=== PATIENT | male | born 1990 | race Caucasian/White ===

== ENCOUNTER 2017-03-28 14:56 | Inpatient (IN) | payer MEDICARE, MEDICAID ==
[2017-03-28 18:27] LABS: Hematocrit 46 % (42-52); Hemoglobin 15.3 g/dl (14.0-18.0); Mean Corpuscular HGB Conc 34 g/dl (31-36); Mean Corpuscular Hemoglobin 30 pg (27-31); Mean Corpuscular Volume 89 fL (80-94); Mean Platelet Volume 7 um3 (7.4-10.4); Red Blood Count 5.14 10^6/ul (4.0-5.4); Red Cell Distribution Width 13 % (10.5-15); White Blood Count 7.5 10^3/ul (3.5-10.8)
[2017-03-28 18:49] LABS: ALT 22 U/L (7-52); AST 16 U/L (13-39); Albumin 4.6 g/dL (3.2-5.2); Alkaline Phosphatase 67 U/L (34-104); Anion Gap 7 mmol/L (2-11); Blood Urea Nitrogen 15 mg/dL (6-24); CO2 Carbon Dioxide 24 mmol/L (22-32); Calcium 9.8 mg/dL (8.6-10.3); Chloride 105 mmol/L (101-111); EGFR African American 116.2 (>60); EGFR Non-African American 90.3 (>60); Globulin 3.1 g/dL (2-4); Glucose 96 mg/dL (70-100); Sodium 136 mmol/L (133-145); Total Protein 7.7 g/dL (6.4-8.9)
[2017-03-28 19:01] LABS: Acetaminophen < 15 mcg/mL; Alcohol < 10 mg/dL (<10); Salicylate < 2.50 mg/dL (<30)
[2017-03-28 19:07] LABS: TSH (Thyroid Stimulating Horm) 2.58 mcIU/mL (0.34-5.60)
--- NOTE | 2017-03-28 22:29 | ED ---
Megan Castillo Edward, scribed for Dago Brunner MD on 03/28/17 at 1514 . Psychiatric Complaint - HPI Summary HPI Summary: 26 y/o male brought to ED by mother. Patient's mother is concerned that the patient has stopped taking his medications, including Fluphenazine 10 mg. Per triage, the patient has also become increasingly violent recently. Patient's mother states he is here for a MHU evaluation, but he denies need for such, per triage. He denies any drug or alcohol use today. PMHx schizophrenia. The patient is uncooperative and does not give much information. 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 Fluphenazine 10 mg among such medications - Allergies/Home Medications Allergies/Adverse Reactions: Allergies Allergy/AdvReac Type Severity Reaction Status Date / Time No Known Allergies Allergy Verified 09/11/13 09:18 Home Medications: Home Medications fluPHENAZine HCL TAB* [Prolixin TAB*] 20 mg PO BEDTIME 03/28/17 [History Confirmed 03/28/17] PMH/Surg Hx/FS Hx/Imm Hx Previously Healthy: No Endocrine/Hematology History: Denies: Hx Diabetes, Hx Thyroid Disease Cardiovascular History: Denies: Hx Hypertension, Hx Pacemaker/ICD Respiratory History: Denies: Hx Asthma, Hx Chronic Obstructive Pulmonary Disease (COPD) GI History: Denies: Hx Ulcer Musculoskeletal History: Reports: Hx Back Problems Sensory History: Denies: Hx Hearing Aid Psychiatric History: Reports: Hx Substance Abuse, Other Psychiatric Issues/ Disorders Denies: Hx Eating Disorder, Hx Panic Disorder, Hx of Violent Episodes Against Others Infectious Disease History: No Infectious Disease History: Denies: Hx Hepatitis, Hx Human Immunodeficiency Virus (HIV), History Other Infectious Disease, Traveled Outside the [place] in Last 30 Days - Family History Known Family History: Positive: Other - Negative for psychiatric disorders - Social History Occupation: Employed Full-time Lives: With Family Alcohol Use: Occasionally Substance Use Type: Reports: None Review of Systems Constitutional: Negative Eyes: Negative ENT: Negative Cardiovascular: Negative Respiratory: Negative Gastrointestinal: Negative Genitourinary: Negative Musculoskeletal: Negative Skin: Negative Neurological: Negative Psychological: Other - Increasingly violent, per triage All Other Systems Reviewed And Are Negative: Yes Physical Exam - Summary Physical Exam Summary: Patient is uncooperative and does not give much information Triage Information Reviewed: Yes Vital Signs On Initial Exam: Initial Vitals Temp Pulse Resp BP Pulse Ox 98.2 F 93 20 142/74 98 03/28/17 15:01 03/28/17 15:01 03/28/17 15:01 03/28/17 15:01 03/28/17 15:01 Vital Signs Reviewed: Yes Appearance: Positive: Well-Appearing, No Pain Distress Skin: Positive: Warm, Skin Color Reflects Adequate Perfusion, Dry Head/Face: Positive: Normal Head/Face Inspection Eyes: Positive: EOMI, JEREMIAH ENT: Positive: Normal ENT inspection Neck: Positive: Supple, Nontender Respiratory/Lung Sounds: Positive: Clear to Auscultation, Breath Sounds Present Cardiovascular: Positive: RRR Abdomen Description: Positive: Nontender, Soft Bowel Sounds: Positive: Present Musculoskeletal: Positive: Normal, Strength/ROM Intact Neurological: Positive: Normal, Sensory/Motor Intact, Alert, Oriented to Person Place, Time Psychiatric: Positive: Affect/Mood Appropriate Diagnostics - Vital Signs Vital Signs Temp Pulse Resp BP Pulse Ox 03/28/17 15:01 98.2 F 93 20 142/74 98 - Laboratory Lab Results: Lab Results 03/28/17 03/28/17 Range/Units 18:15 18:15 WBC 7.5 (3.5-10.8) 10^3/ul RBC 5.14 (4.0-5.4) 10^6/ul Hgb 15.3 (14.0-18.0) g/dl Hct 46 (42-52) % MCV 89 (80-94) fL MCH 30 (27-31) pg MCHC 34 (31-36) g/dl RDW 13 (10.5-15) % Plt Count 283 (150-450) 10^3/ul MPV 7 L (7.4-10.4) um3 Neut % (Auto) 63.9 (38-83) % Lymph % (Auto) 28.0 (25-47) % [place] % (Auto) 6.5 (1-9) % Eos % (Auto) 0.9 (0-6) % Baso % (Auto) 0.7 (0-2) % Absolute Neuts (auto) 4.8 (1.5-7.7) 10^3/ul Absolute Lymphs (auto) 2.1 (1.0-4.8) 10^3/ul Absolute Monos (auto) 0.5 (0-0.8) 10^3/ul Absolute Eos (auto) 0.1 (0-0.6) 10^3/ul Absolute Basos (auto) 0.1 (0-0.2) 10^3/ul Absolute Nucleated RBC 0 10^3/ul Nucleated RBC % 0 Sodium 136 (133-145) mmol/L Potassium 4.0 (3.5-5.0) mmol/L Chloride 105 (101-111) mmol/L Carbon Dioxide 24 (22-32) mmol/L Anion Gap 7 (2-11) mmol/L BUN 15 (6-24) mg/dL Creatinine 1.00 (0.67-1.17) mg/dL Est GFR ( Amer) 116.2 (>60) Est GFR (Non-Af Amer) 90.3 (>60) BUN/Creatinine Ratio 15.0 (8-20) Glucose 96 (70-100) mg/dL Calcium 9.8 (8.6-10.3) mg/dL Total Bilirubin 0.40 (0.2-1.0) mg/dL AST 16 (13-39) U/L ALT 22 (7-52) U/L Alkaline Phosphatase 67 (34-104) U/L Total Protein 7.7 (6.4-8.9) g/dL Albumin 4.6 (3.2-5.2) g/dL Globulin 3.1 (2-4) g/dL Albumin/Globulin Ratio 1.5 (1-3) TSH 2.58 (0.34-5.60) mcIU/mL Salicylates < 2.50 (<30) mg/dL Acetaminophen < 15 mcg/mL Serum Alcohol < 10 (<10) mg/dL Result Diagrams: 03/28/17 18:15 03/28/17 18:15 Lab Statement: Any lab studies that have been ordered have been reviewed, and results considered in the medical decision making process. Course/Dx - Course Course Of Treatment: NO CRITICAL CARE TIME. ADMIT MHU STABLE. Assessment/Plan: Patient is medically cleared for MHU evaluation @ 19:[address] Dago Brunner. - Differential Dx/Clinical Impression Provider Diagnosis: Mental health problem Discharge - Discharge Plan Condition: Stable Disposition: ADMITTED TO [facility] Referrals: No Primary Care Phys,NOPCP [Primary Care Provider] - The documentation as recorded by the Megan mcgovern Edward accurately reflects the service I personally performed and the decisions made by me, Dago Brunner MD.
[2017-03-29] MEDS ORDERED: Nicotine Inhaler* 10 MG AMP INH PRN (02:27)
[2017-03-29] MEDS ORDERED: Al Hydrox/Mg Hydrox/Simet LIQ* 30 ML UDC PO PRN (02:27)
[2017-03-29] MEDS ORDERED: Nicotine GUM* 2 MG PO PRN (02:27)
[2017-03-29] MEDS ORDERED: Mouth Piece, Nicotine* 1 EACH CARTRIDGE INH SCH (02:27)
--- NOTE | 2017-03-29 12:21 | HP ---
H&P (Free Text) History and Physical: HPI: ---- Patient is a 26yo male with PPHx significant for Schizophrenia who presented to the [facility] ED, brought in by his mother, due to increasing aggressive behavior and her concern that the patient has stopped taking his MH medication, Fluphenazine 20 mg~ po bedtime. ~The patient has been mostly uncooperative with the interview and gives no information. Patient is noted to be up for meals and is able to voice his needs. Per mom, patient has not been attending to ADLs and has not bathed in days. She reports recently he has been expressing bizarre paranoid delusions, bizarre ideations, and has been observed responding to internal stimuli. Patient reports no use of alcohol or illicit substances. He reports no prior suicide attempts. He denies current AH/VH and SI/HI. Patient denies depression, anxiety, poor sleep, and thoughts people intended hurt him. Patient has been secluded to his room since admission. Past Psych Hx: Inpt - This is patient's 2nd, 1st at [facility] in 08/2013, with similar presentation Outpt - none due to non-compliance Psychotropic med hx - Prolixin Suicide attempt Hx / SIB Hx: -Patient denies hx of suicide attempt. Trauma Hx: -Patient denies hx of trauma in childhood and adulthood. Substance Hx: -Patient denies abuse of alcohol and denies use of illicit substances. Medical Hx: NONE Allergies: --------- NKDA Family Hx: - Per Medical Record No hx of MH, IAIN, or suicide in family. Social Hx: - Per Medical Record --------- -Born and raised in [place], [place] -Raised by mom and dad -No siblings -Single, never , no children -HLOE - HS diploma -Denied legal hx HOME MEDS: Home Medications Medication Instructions Recorded Confirmed Type fluPHENAZine HCL TAB* [Prolixin 20 mg PO BEDTIME 03/28/17 03/28/17 History TAB*] VITALS: Vital Signs (72 hours) 03/28/17 03/28/17 03/28/17 15:01 16:45 20:05 Temperature 98.2 F 98.3 F 98.7 F Pulse Rate 93 78 84 Respiratory 20 16 15 Rate Blood Pressure 142/74 135/70 103/51 (mmHg) O2 Sat by Pulse 98 100 100 Oximetry 03/28/17 03/29/17 03/29/17 22:46 03:02 07:53 Temperature 98.0 F 97.6 F Pulse Rate 74 54 Respiratory 16 18 16 Rate Blood Pressure 123/64 109/64 (mmHg) O2 Sat by Pulse 99 99 Oximetry 03/29/17 11:54 Temperature Pulse Rate Respiratory 16 Rate Blood Pressure (mmHg) O2 Sat by Pulse Oximetry LABS: ----- Laboratory Tests 03/28/17 03/28/17 18:15 18:15 WBC 7.5 RBC 5.14 Hgb 15.3 Hct 46 MCV 89 MCH 30 MCHC 34 RDW 13 Plt Count 283 MPV 7 L Neut % (Auto) 63.9 Lymph % (Auto) 28.0 [place] % (Auto) 6.5 Eos % (Auto) 0.9 Baso % (Auto) 0.7 Absolute Neuts (auto) 4.8 Absolute Lymphs (auto) 2.1 Absolute Monos (auto) 0.5 Absolute Eos (auto) 0.1 Absolute Basos (auto) 0.1 Absolute Nucleated RBC 0 Nucleated RBC % 0 Sodium 136 Potassium 4.0 Chloride 105 Carbon Dioxide 24 Anion Gap 7 BUN 15 Creatinine 1.00 Est GFR ( Amer) 116.2 Est GFR (Non-Af Amer) 90.3 BUN/Creatinine Ratio 15.0 Glucose 96 Calcium 9.8 Total Bilirubin 0.40 AST 16 ALT 22 Alkaline Phosphatase 67 Total Protein 7.7 Albumin 4.6 Globulin 3.1 Albumin/Globulin Ratio 1.5 TSH 2.58 Salicylates < 2.50 Acetaminophen < 15 Serum Alcohol < 10 PHYSICAL EXAM: Patient declined PE. Please see PE documented on the [facility] ED: Psychiatric Complaint note dated 03/28/17. MSE: ----- Appearance - thin build male, looks stated age, disheveled, in NAD Behavior -calm, uncooperative Speech - single word responses, prosody wnl Eye Contact - poor Mood - "fine" Affect - anxious TP - unable to assess TC - unable to assess Perception - pt denies AH/VH, (+) expressed paranoid delusions, (+) expressed bizarre ideations Orientation - A&Ox2 Cognition - intact Attention - intact Insight - poor Judgment - poor SI / HI - SI present on admission, currently denies both ASSESSMENT: 1. Schizophrenia PLAN: ------ 1. Continue admission to [facility] for safety and symptom mx. 2. Patient gives consent to start Abilify 10mg po qhs for mood stabilization/ psychosis. 3. Will request urine from patient for UDS and UA. 4. Continue compiling collateral information from family, PCP, andMH providers. 5. Patient to participate in milieu activities and groups.
[2017-03-29] MEDS ORDERED: LORazepam TAB(*) 1 MG PO ONE (18:30)
[2017-03-29] MEDS: ARIPiprazole TAB* 5 MG PO SCH (21:40)
--- NOTE | 2017-03-30 18:08 | PN ---
Subjective - Subjective Service Type: 63369 Hosp care 15 min low complexity Subjective: Patient lying in bed on my approach. Patient is uncooperative with interview, stating "I don't feel like talking right now" as this provider initiated the interview. Patient is noted to be up for meals and is able to voice his needs. Patient is anxous in affect and continues to behave as if responding to internal stimuli. He did not take anti-psychotic ordered for last night. Patient informed T.O.O. process would be initiated Sunday due to non-compliance as currently he does not demonstrate ability to maintain his safety. Patient encouraged to be med compliant and report any s/ e's to nursing. Objective - Appearance Appearance: Thin Framed Dysmorphic Features: No Hygiene: Dirty Grooming: Disheveled - Behavior Psychomotor Activities: Abnormal-Decreased Exhibits Abnormal Movement: Yes - Attitude and Relatedness Attitude and Relatedness: Psychotically Related Eye Contact: Poor - Speech Quality: Unpressured Latencies: Short Quantity: Terse - Mood Patient's Decription of Mood: "Anxious" - Affect Observed Affect: Tense Affect Consistent with: Dysphoria - Thought Process Patient's Thought Process: Disorganized Thought Content: No Passive Wish, No Suicidal Planning, No Homicidal Ideation, No Paranoid Ideation - Sensorium Experiencing Hallucinations: No, Sensorium is Clear Type of Hallucinations: Visual: No - per pt., Auditory: No - per pt., Command: No - per pt. - Level of Consciousness Level of Consciousness: Agitated Orientation: Yes Orientated to Place, Yes Orientated to Person, No Intact, No Orientated to Time - Impulse Control Impulse Control: Impaired - Insight and Judgement Insight and Judgement: Impaired - Group Participation Particating in Group Activities: No - Medication Management Medication Management Adherence: No Assessment - Assessment Merits Inpatient Hospitalization: For Immediate Safety, For Stabilization Inpatient DSM-IV Dx: 1. Schizophrenia Clinical Impression: 26yo male patient with PPHx significant for Schizophrenia presented to the [facility] ED, brought in by his mother, due to increasing aggressive behavior and her concern that the patient has stopped taking his MH medications, Fluphenazine 20 mg~ po daily. ~The patient has been uncooperative with all interviews and gives no information. Patient is noted to be up for meals and is able to voice his needs. Per mom, patient has not been attending to ADLs and has not bathed in days. She reports recently he has been expressing bizarre paranoid delusions, bizarre ideations and has been observed responding to internal stimuli. Patient reports no use of alcohol or illicit substances. Patient has been secluded to his room since admission. He has not med compliant this admission. Patient informed T.O.O. process would be initiated due to non-compliance as currently he does not demonstrate ability to maintain his safety. Plan - Plan Treatment Plan: Name: CAT MUNIZ Birthdate: 1990 [id number] PLAN: ------ 1. Continue admission to [facility] for safety and symptom mx. 2. Patient non-complaint with Abilify 10mg po qhs for mood stabilization/ psychosis. 3. Patient informed T.O.O. process would be initiated Sunday due to non- compliance as currently he does not demonstrate ability to maintain his safety. Patient encouraged to be med compliant and report any s/e's to nursing. 4. Patient declines request for urine for UDS and UA. 5. Continue compiling collateral information from family, PCP, andMH providers. 6. Patient to participate in milieu activities and groups. Continued Medication Management: Different Medication Medications: Current Medications Acetaminophen (Tylenol Tab*) 650 mg PO Q4H PRN PRN Reason: PAIN or TEMP > 101 F Al Hydrox/Mg Hydrox/Simethicone (Maalox Plus*) 30 ml PO Q4H PRN PRN Reason: INDIGESTION Aripiprazole (Abilify Tab*) 10 mg PO BEDTIME [facility] Last Admin: 03/29/17 21:40 Dose: Not Given Device (Nicotine Mouth Piece*) 1 each INH .[facility] Nicotine (Nicotine Inhaler*) 10 mg INH Q2H PRN PRN Reason: CRAVING Nicotine Polacrilex (Nicotine Gum*) 2 mg PO Q2H PRN PRN Reason: CRAVING - Discharge Plan Discharge Plan: Outpatient Follow Up Outpatient Program: Private Clinician(s)
[2017-03-30] MEDS: ARIPiprazole TAB* 5 MG PO SCH (20:35)
--- NOTE | 2017-03-31 16:56 | PN ---
Subjective - Subjective Service Type: [id number] Hosp care 15 min low complexity Subjective: Asa is seen for weekend follow up and is found sitting alone on a sofa out on the milieu. Staff seemed surprised to see him as he mostly stays in his room under his covers unless it is mealtime, which isn't scheduled for another half hour. He agrees to go back to his room with me but will not make eye contact or make any spontaneous speech. When asked about the circumstances surrounding admission he replies "I don't remember." I ask him if he's willing to resume antipsychotic medication, to which he initially agrees, but when I offer to go get a nurse and come back with it, he abruptly gets up and leaves the room. He refuses to engage in conversation thereafter, appearing irritable and somewhat hostile. He denies SI or HI. Objective - Appearance Appearance: Well Developed/Nourished Dysmorphic Features: No Hygiene: Dirty Grooming: Disheveled - Behavior Psychomotor Activities: Abnormal-Decreased Exhibits Abnormal Movement: No - Attitude and Relatedness Attitude and Relatedness: Withdrawn Eye Contact: Poor - Speech Quality: Unpressured Latencies: Long Quantity: Terse - Mood Patient's Decription of Mood: "Okay" - Affect Observed Affect: Tense Affect Consistent with: Dysphoria - Thought Process Patient's Thought Process: Impoverished Thought Content: Yes Paranoid Ideation, No Passive Wish, No Suicidal Planning, No Homicidal Ideation - Sensorium Experiencing Hallucinations: Yes Type of Hallucinations: Visual: Yes, Auditory: Yes, Command: No - Level of Consciousness Level of Consciousness: Alert Orientation: Yes Intact, Yes Orientated to Time, Yes Orientated to Place, Yes Orientated to Person - Impulse Control Impulse Control: Poor - Insight and Judgement Insight and Judgement: Impaired - Group Participation Particating in Group Activities: No - Medication Management Medication Management Adherence: No Assessment - Assessment Merits Inpatient Hospitalization: For Immediate Safety, For Stabilization Inpatient DSM-IV Dx: 1. Schizophrenia Clinical Impression: 26 y.o. single, white male with a history of schizophrenia brought in by his mother due to increasing aggression and decreased self care in the setting of non-adherence with neuroleptic medications for several months. Plan - Plan Treatment Plan: Name: ASA MUNIZ Birthdate: 1990 [id number] Patient refusing antipsychotic treatment. Likely requires T.O.O. Continue to offer aripiprazole 10mg PO qday. Needs further inpatient care. Continued Medication Management: Start Medication Medications: Current Medications Acetaminophen (Tylenol Tab*) 650 mg PO Q4H PRN PRN Reason: PAIN or TEMP > 101 F Al Hydrox/Mg Hydrox/Simethicone (Maalox Plus*) 30 ml PO Q4H PRN PRN Reason: INDIGESTION Aripiprazole (Abilify Tab*) 10 mg PO BEDTIME [facility] Last Admin: 03/30/17 20:35 Dose: Not Given Device (Nicotine Mouth Piece*) 1 each INH .[facility] Nicotine (Nicotine Inhaler*) 10 mg INH Q2H PRN PRN Reason: CRAVING Nicotine Polacrilex (Nicotine Gum*) 2 mg PO Q2H PRN PRN Reason: CRAVING - Discharge Plan Discharge Plan: Inpatient Hospitalization
[2017-03-31] MEDS: ARIPiprazole TAB* 5 MG PO SCH (22:40)
[2017-04-01] MEDS: ARIPiprazole TAB* 5 MG PO SCH (21:22)
--- NOTE | 2017-04-02 15:34 | PN ---
Subjective - Subjective Service Type: [id number] Hosp care 15 min low complexity Subjective: Patient in line for lunch tray on approach. He is calm and cooperative. He is noted to have spent the majority of the weekend in his room. He is noted to be able to verbal needs. Patient has not attended to his hygeine and has not engaged in therapy. Patient has been med non-compliant. Patient again today declined the interview. Patient informed this provider will start the process of T.O.O. today. Per conversation with mother(Lyndsay#[phone]) patient has shown most benefit on Risperdal. She reports patient has been increasingly verbally aggressive and paranoid x 1month. He has not reported hallucinations to her, but she has observed him to be responding to internal stimuli. Patient slapped pills from his mother's hand during an attempt to administer. She reports patient has hx of med non-compliance and believes patient has been med non-compliant for at least the last month. Mom requests consideration of an VALADEZ during T.O.O. Objective - Appearance Appearance: Well Developed/Nourished Dysmorphic Features: No Hygiene: Dirty Grooming: Disheveled - Behavior Psychomotor Activities: Abnormal-Decreased Exhibits Abnormal Movement: No - Attitude and Relatedness Attitude and Relatedness: Withdrawn Eye Contact: Poor - Speech Quality: Unpressured Latencies: Short Quantity: Terse - Mood Patient's Decription of Mood: uncooperative with interview - Affect Observed Affect: Unvariable Affect Consistent with: Euthymia - Thought Process Patient's Thought Process: Coherent Thought Content: No Passive Wish, No Suicidal Planning, No Homicidal Ideation, No Paranoid Ideation - Level of Consciousness Level of Consciousness: Alert - Impulse Control Impulse Control: Poor - Insight and Judgement Insight and Judgement: Poor - Group Participation Particating in Group Activities: No - Medication Management Medication Management Adherence: No Assessment - Assessment Merits Inpatient Hospitalization: For Immediate Safety, For Stabilization Inpatient DSM-IV Dx: 1. Schizophrenia Clinical Impression: 26yo male patient with PPHx significant for Schizophrenia presented to the [facility] ED, brought in by his mother, due to increasing aggressive behavior and mother s concern that the patient has stopped taking his MH medication, Fluphenazine 20 mg po daily. The patient has been uncooperative with all interviews and gives no information. Per mom(Lyndsay#[phone]), who patient lives with, patient has not been attending to ADLs. Mom reports patient has been non- compliant with mental health meds for at least one month. Mom reports patient has not bathed in approx. 4 weeks. She reports patient is more isolative and socially withdrawn over the same time. She reports patient has a hx of VHs and AHs. She reports he recently he has not reported hallucinations to her, but she has noticed him behaving as if responding to some internal stimuli. She reports he has been expressing paranoid delusions and bizarre ideas. Plan - Plan Treatment Plan: Name: CAT MUNIZ Birthdate: 1990 [id number] PLAN: ------ 1. Continue admission to [facility] for safety and symptom mx. 2. Patient continues to be non-complaint with Abilify 10mg po qhs for mood stabilization/psychosis. 3. Patient informed T.O.O. process will start today(04/02/17) due to non- compliance as currently he does not demonstrate ability to maintain his safety. Patient encouraged to be med compliant and report any s/e's to nursing. 4. Patient declines request for urine for UDS and UA. 5. Continue compiling collateral information from family, PCP, and MH providers. 6. Patient to participate in milieu activities and groups. Continued Medication Management: Different Medication Medications: Current Medications Acetaminophen (Tylenol Tab*) 650 mg PO Q4H PRN PRN Reason: PAIN or TEMP > 101 F Al Hydrox/Mg Hydrox/Simethicone (Maalox Plus*) 30 ml PO Q4H PRN PRN Reason: INDIGESTION Aripiprazole (Abilify Tab*) 10 mg PO BEDTIME [facility] Last Admin: 04/01/17 21:22 Dose: Not Given Device (Nicotine Mouth Piece*) 1 each INH .[facility] Nicotine (Nicotine Inhaler*) 10 mg INH Q2H PRN PRN Reason: CRAVING Nicotine Polacrilex (Nicotine Gum*) 2 mg PO Q2H PRN PRN Reason: CRAVING - Discharge Plan Discharge Plan: Outpatient Follow Up
[2017-04-02] MEDS: ARIPiprazole TAB* 5 MG PO SCH (20:33)
--- NOTE | 2017-04-03 19:06 | PN ---
Subjective - Subjective Service Type: 20307 Hosp care 15 min low complexity Subjective: Patient again noted to be mostly isolated in his room. Patient is seen in the milieu for meals. Patient continues to be non-compliant with meds and groups. On approach patient was eating dinner sitting at a table alone. Patient observed starring straight ahead and making facial expressions as if responding to VHs. Patient again reported he did not want to talk. Patient also noted to have a visitor after my attempt to interview. Patient did not engage his visitor in conversation either. Patient noted to have completed approx 75% of his meal. He is noted to be able to verbalize his needs. Patient has made no complaints. Objective - Appearance Appearance: Thin Framed Dysmorphic Features: No Hygiene: Dirty Grooming: Disheveled - Behavior Psychomotor Activities: Abnormal-Decreased Exhibits Abnormal Movement: No - Attitude and Relatedness Attitude and Relatedness: Withdrawn Eye Contact: Poor - Speech Quality: Unpressured Latencies: Short Quantity: Terse - Mood Patient's Decription of Mood: uncooperative with interniew - Affect Observed Affect: Unvariable Affect Consistent with: Dysphoria - Thought Process Patient's Thought Process: Disorganized Thought Content: No Passive Wish - unable to assess, No Suicidal Planning - unable to assess, No Homicidal Ideation - unable to assess, No Paranoid Ideation - unable to assess - Sensorium Experiencing Hallucinations: Yes Type of Hallucinations: Visual: No - unable to assess, but patient noted obviously responding to internal stimuli, Auditory: No - unable to assess, but patient noted obviously responding to internal stimuli, Command: No - unable to assess, but patient noted obviously responding to internal stimuli - Level of Consciousness Level of Consciousness: Lethargic Orientation: Yes Intact, Yes Orientated to Place, Yes Orientated to Person, No Orientated to Time - Impulse Control Impulse Control: Impaired - Insight and Judgement Insight and Judgement: Impaired - Medication Management Medication Management Adherence: No Assessment - Assessment Inpatient DSM-IV Dx: 1. Schizophrenia Clinical Impression: 26yo male patient with PPHx significant for Schizophrenia presented to the [facility], brought in by his mother, due to increasing aggressive behavior and mother s concern that the patient has stopped taking his MH medication, Fluphenazine 20 mg po daily. The patient has been uncooperative with all interviews and gives no information. Per mom(Lyndsay#[phone]), who patient lives with, patient has not been attending to ADLs. Mom reports patient has been non- compliant with mental health meds for at least one month. Mom reports patient has not bathed in approx. 4 weeks. She reports patient is more isolative and socially withdrawn over the same time. She reports patient has a hx of VHs and AHs. She reports he recently he has not reported hallucinations to her, but she has noticed him behaving as if responding to some internal stimuli. She reports he has been expressing paranoid delusions and bizarre ideas. Plan - Plan Treatment Plan: Name: CAT MUNIZ Birthdate: 1990 [id number] PLAN: ------ 1. Continue admission to [facility] for safety and symptom mx. 2. Patient continues to be non-complaint with Abilify 10mg po qhs for mood stabilization/psychosis. 3. Patient informed T.O.O. process will start today(04/02/17) due to non- compliance as currently he does not demonstrate ability to maintain his safety. Patient encouraged to be med compliant and report any s/e's to nursing. 4. Patient declines request for urine for UDS and UA. 5. Continue compiling collateral information from family, PCP, and MH providers. 6. Patient to participate in milieu activities and groups. Medications: Current Medications Acetaminophen (Tylenol Tab*) 650 mg PO Q4H PRN PRN Reason: PAIN or TEMP > 101 F Al Hydrox/Mg Hydrox/Simethicone (Maalox Plus*) 30 ml PO Q4H PRN PRN Reason: INDIGESTION Aripiprazole (Abilify Tab*) 10 mg PO BEDTIME [facility] Last Admin: 04/02/17 20:33 Dose: Not Given Device (Nicotine Mouth Piece*) 1 each INH .CARTRIDGE [facility] Nicotine (Nicotine Inhaler*) 10 mg INH Q2H PRN PRN Reason: CRAVING Nicotine Polacrilex (Nicotine Gum*) 2 mg PO Q2H PRN PRN Reason: CRAVING
[2017-04-03] MEDS: ARIPiprazole TAB* 5 MG PO SCH (20:17)
--- NOTE | 2017-04-04 17:34 | PN ---
Subjective - Subjective Service Type: 57013 Hosp care 15 min low complexity Subjective: Patient continues to be noted isolating in his room most of the day. He is up for meals, but concerns have arised regarding intake. Patient reports his appetite is good. A CMP will be ordered to surveil fluid status, kidney function and electrolytes. Patient reports his mood as "ok". Patient then states,"can we talk later". Patient has been med non-compliant since admission. Objective - Appearance Appearance: Thin Framed Dysmorphic Features: No Hygiene: Dirty Grooming: Disheveled - Behavior Psychomotor Activities: Abnormal-Decreased Exhibits Abnormal Movement: No - Attitude and Relatedness Attitude and Relatedness: Minimally Cooperative Eye Contact: Poor - Speech Quality: Unpressured Latencies: Short Quantity: Terse - Mood Patient's Decription of Mood: "Okay" - Affect Observed Affect: Unvariable Affect Consistent with: Dysphoria - Thought Process Patient's Thought Process: Disorganized Thought Content: No Passive Wish, No Suicidal Planning, No Homicidal Ideation, No Paranoid Ideation - Sensorium Experiencing Hallucinations: No, Sensorium is Clear Type of Hallucinations: Visual: No - unable to assess, Auditory: No - unable to assess, Command: No - unable to assess - Level of Consciousness Level of Consciousness: Lethargic Orientation: Yes Intact, Yes Orientated to Person, No Orientated to Time - unable to assess, No Orientated to Place - unable to assess - Impulse Control Impulse Control: Poor - Insight and Judgement Insight and Judgement: Poor - Group Participation Particating in Group Activities: No - Medication Management Medication Management Adherence: No Assessment - Assessment Merits Inpatient Hospitalization: For Immediate Safety, For Stabilization Inpatient DSM-IV Dx: 1. Schizophrenia Clinical Impression: 26yo male patient with PPHx significant for Schizophrenia presented to the [facility], brought in by his mother, due to increasing aggressive behavior and mother s concern that the patient has stopped taking his MH medication, Fluphenazine 20 mg po daily. The patient has been uncooperative with all interviews and gives no information. Per mom(Lyndsay#[phone]), who patient lives with, patient has not been attending to ADLs. Mom reports patient has been non- compliant with mental health meds for at least one month. Mom reports patient has not bathed in approx. 4 weeks. She reports patient is more isolative and socially withdrawn over the same time. She reports patient has a hx of VHs and AHs. She reports he recently he has not reported hallucinations to her, but she has noticed him behaving as if responding to some internal stimuli. She reports he has been expressing paranoid delusions and bizarre ideas. Plan - Plan Treatment Plan: Name: CAT MUNIZ Birthdate: 1990 [id number] PLAN: ------ 1. Continue admission to [facility] for safety and symptom mx. 2. Patient continues to be non-complaint with Abilify 10mg po qhs for mood stabilization/psychosis. 3. Patient informed T.O.O. process started due to non-compliance as currently he does not demonstrate ability to maintain his safety. Patient encouraged to be med compliant and report any s/e's to nursing. 4. Patient declined request for urine for UDS and UA. 5. Continue compiling collateral information from family, PCP, and MH providers. 6. Patient to participate in milieu activities and groups. Continued Medication Management: Start Medication Medications: Current Medications Acetaminophen (Tylenol Tab*) 650 mg PO Q4H PRN PRN Reason: PAIN or TEMP > 101 F Al Hydrox/Mg Hydrox/Simethicone (Maalox Plus*) 30 ml PO Q4H PRN PRN Reason: INDIGESTION Aripiprazole (Abilify Tab*) 10 mg PO BEDTIME [facility] Last Admin: 04/03/17 20:17 Dose: Not Given Device (Nicotine Mouth Piece*) 1 each INH .CARTRIDGE [facility] Nicotine (Nicotine Inhaler*) 10 mg INH Q2H PRN PRN Reason: CRAVING Nicotine Polacrilex (Nicotine Gum*) 2 mg PO Q2H PRN PRN Reason: CRAVING - Discharge Plan Discharge Plan: Outpatient Follow Up
[2017-04-04] MEDS: ARIPiprazole TAB* 5 MG PO SCH (20:29)
--- NOTE | 2017-04-05 16:50 | PN ---
Subjective - Subjective Service Type: 57900 Hosp care 15 min low complexity Subjective: Patient lying in bed on my approach, playing with a small piece of paper he has held up to his face. Patient is calm and more pleasant. He minimally engages the interview with one word responses to questions. He reports med non-compliance. He stated, "I don't need tests" when asked about his refusing lab work. Patient reports he had a visitor today. He reported he did talk to his visitor today. He reports no LEUNG, CP, Abd pain, and reports urinating and bowel movements are wnl. He reports he is drinking water. He reports sleep and appetite are wnl. Patient again reminded of the upcoming hearing for T.O.O. He was informed his mental health reinforcing iron worker helper would be talking to him tomorrow or early next week. Patient did not acknowledge understanding. Patient denies SI/HI and AH/VH. He reports he feels safe on the unit. Objective - Appearance Appearance: Thin Framed Dysmorphic Features: No Hygiene: Dirty Grooming: Disheveled - Behavior Psychomotor Activities: Abnormal-Decreased Exhibits Abnormal Movement: No - Attitude and Relatedness Attitude and Relatedness: Minimally Cooperative Eye Contact: Fair - Speech Quality: Unpressured Latencies: Normal Quantity: Terse - Mood Patient's Decription of Mood: "Fine" - Affect Observed Affect: Unvariable Affect Consistent with: Dysphoria - Thought Process Patient's Thought Process: Impoverished Thought Content: No Passive Wish, No Suicidal Planning, No Homicidal Ideation, No Paranoid Ideation - Sensorium Experiencing Hallucinations: No, Sensorium is Clear Type of Hallucinations: Visual: No, Auditory: No, Command: No - Level of Consciousness Level of Consciousness: Alert Orientation: Yes Intact, Yes Orientated to Time, Yes Orientated to Place, Yes Orientated to Person - Impulse Control Impulse Control: Tenuous - Insight and Judgement Insight and Judgement: Fair - Group Participation Particating in Group Activities: No - Medication Management Medication Management Adherence: No Assessment - Assessment Merits Inpatient Hospitalization: For Immediate Safety, For Stabilization Inpatient DSM-IV Dx: 1. Schizophrenia Clinical Impression: 26yo male patient with PPHx significant for Schizophrenia presented to the [facility], brought in by his mother, due to increasing aggressive behavior and mother s concern that the patient has stopped taking his MH medication, Fluphenazine 20 mg po daily. The patient has been uncooperative with all interviews and gives no information. Per mom(Lyndsay#[phone]), who patient lives with, patient has not been attending to ADLs. Mom reports patient has been non- compliant with mental health meds for at least one month. Mom reports patient has not bathed in approx. 4 weeks. She reports patient is more isolative and socially withdrawn over the same time. She reports patient has a hx of VHs and AHs. She reports he recently he has not reported hallucinations to her, but she has noticed him behaving as if responding to some internal stimuli. She reports he has been expressing paranoid delusions and bizarre ideas. Plan - Plan Treatment Plan: Name: CAT MUNIZ Birthdate: 1990 [id number] PLAN: ------ 1. Continue admission to [facility] for safety and symptom mx. 2. Patient continues to be non-complaint with Abilify 10mg po qhs for mood stabilization/psychosis. 3. Patient informed T.O.O. process started due to non-compliance as currently he does not demonstrate ability to maintain his safety. Patient encouraged to be med compliant and report any s/e's to nursing. 4. Patient declined request for urine for UDS and UA and blood for CMP. 5. Collateral information obtained from family, PCP, and MH providers. 6. Patient to participate in milieu activities and groups. Medications: Current Medications Acetaminophen (Tylenol Tab*) 650 mg PO Q4H PRN PRN Reason: PAIN or TEMP > 101 F Al Hydrox/Mg Hydrox/Simethicone (Maalox Plus*) 30 ml PO Q4H PRN PRN Reason: INDIGESTION Aripiprazole (Abilify Tab*) 10 mg PO BEDTIME [facility] Last Admin: 04/04/17 20:29 Dose: Not Given Device (Nicotine Mouth Piece*) 1 each INH .[facility] Nicotine (Nicotine Inhaler*) 10 mg INH Q2H PRN PRN Reason: CRAVING Nicotine Polacrilex (Nicotine Gum*) 2 mg PO Q2H PRN PRN Reason: CRAVING - Discharge Plan Discharge Plan: Outpatient Follow Up
[2017-04-05] MEDS: ARIPiprazole TAB* 5 MG PO SCH (22:29)
--- NOTE | 2017-04-06 14:01 | PN ---
Subjective - Subjective Service Type: 87960 Hosp care 15 min low complexity Subjective: Patient still isolated to his room. On my approach, patient is lying in his bed covered up and facing the wall. He does not turn over to face this provider. Patient engages the interview but only minimally. He continues to respond in 1-2 word answers. Patient reports med non- compliance. He reports no issues. He continues to be noted up for meals and back to his room again today. He denies LEUNG, CP, ABD pain. Patient denies SI/HI and AH/VH. Objective - Appearance Appearance: Thin Framed Dysmorphic Features: No Hygiene: Dirty Grooming: Disheveled - Behavior Psychomotor Activities: Abnormal-Decreased Exhibits Abnormal Movement: No - Attitude and Relatedness Attitude and Relatedness: Minimally Cooperative Eye Contact: Poor - Speech Quality: Unpressured Latencies: Short Quantity: Terse - Mood Patient's Decription of Mood: "Fine" - Affect Observed Affect: Unvariable Affect Consistent with: Dysphoria - Thought Process Patient's Thought Process: Coherent Thought Content: No Passive Wish, No Suicidal Planning, No Homicidal Ideation, No Paranoid Ideation - Sensorium Experiencing Hallucinations: No, Sensorium is Clear Type of Hallucinations: Visual: No, Auditory: No, Command: No - Level of Consciousness Level of Consciousness: Alert Orientation: Yes Intact, Yes Orientated to Place, Yes Orientated to Person, No Orientated to Time - Impulse Control Impulse Control: Intact - Insight and Judgement Insight and Judgement: Poor - Group Participation Particating in Group Activities: No - Medication Management Medication Management Adherence: No Assessment - Assessment Merits Inpatient Hospitalization: For Immediate Safety, For Stabilization Inpatient DSM-IV Dx: 1. Schizophrenia Clinical Impression: 26yo male patient with PPHx significant for Schizophrenia presented to the [facility] ED, brought in by his mother, due to increasing aggressive behavior and mother s concern that the patient has stopped taking his MH medication, Fluphenazine 20 mg po daily. The patient has been uncooperative with all interviews and gives no information. Per mom(Lyndsay#[phone]), who patient lives with, patient has not been attending to ADLs. Mom reports patient has been non- compliant with mental health meds for at least one month. Mom reports patient has not bathed in approx. 4 weeks. She reports patient is more isolative and socially withdrawn over the same time. She reports patient has a hx of VHs and AHs. She reports he recently he has not reported hallucinations to her, but she has noticed him behaving as if responding to some internal stimuli. She reports he has been expressing paranoid delusions and bizarre ideas. Plan - Plan Treatment Plan: Name: CAT MUNIZ Birthdate: 1990 [id number] PLAN: ------ 1. Continue admission to [facility] for safety and symptom mx. 2. Patient continues to be non-complaint with Abilify 10mg po qhs for mood stabilization/psychosis. 3. Patient informed T.O.O. hearing scheduled for Sunday afternoon. 4. Patient declined request for urine for UDS and UA and blood for CMP. 5. Collateral information obtained from family, PCP, and providers. 6. Patient to participate in milieu activities and groups. Continued Medication Management: Start Medication Medications: Current Medications Acetaminophen (Tylenol Tab*) 650 mg PO Q4H PRN PRN Reason: PAIN or TEMP > 101 F Al Hydrox/Mg Hydrox/Simethicone (Maalox Plus*) 30 ml PO Q4H PRN PRN Reason: INDIGESTION Aripiprazole (Abilify Tab*) 10 mg PO BEDTIME [facility] Last Admin: 04/05/17 22:29 Dose: Not Given Device (Nicotine Mouth Piece*) 1 each INH .CARTRIDGE [facility] Nicotine (Nicotine Inhaler*) 10 mg INH Q2H PRN PRN Reason: CRAVING Nicotine Polacrilex (Nicotine Gum*) 2 mg PO Q2H PRN PRN Reason: CRAVING - Discharge Plan Discharge Plan: Outpatient Follow Up
[2017-04-06] MEDS: ARIPiprazole TAB* 5 MG PO SCH (20:31)
[2017-04-07] MEDS: ARIPiprazole TAB* 5 MG PO SCH (21:36)
--- NOTE | 2017-04-08 19:50 | PN ---
Subjective - Subjective Service Type: 63477 Hosp care 15 min low complexity Subjective: Asa continues to deny any psychiatric or physical problem and says he doesn' t know why he is here. Has an intense stare, suspicious and guarded. Looks away during the assessment and at times appears internally occupied. Objective - Appearance Appearance: Healthy Appearing Dysmorphic Features: No Hygiene: Normal Grooming: Fairly Well Kept - Behavior Psychomotor Activities: Normal Exhibits Abnormal Movement: No - Attitude and Relatedness Attitude and Relatedness: Superficially Cooperative Eye Contact: Poor - Speech Quality: Unpressured Latencies: Long Quantity: Terse - Mood Patient's Decription of Mood: "Okay" - Affect Observed Affect: Constricted - Thought Process Patient's Thought Process: Coherent, Impoverished Thought Content: No Passive Wish, No Suicidal Planning, No Homicidal Ideation, No Paranoid Ideation - Sensorium Type of Hallucinations: Visual: No, Auditory: No, Command: No - Level of Consciousness Orientation: Yes Intact, Yes Orientated to Time, Yes Orientated to Place, Yes Orientated to Person - Impulse Control Impulse Control: Tenuous - Insight and Judgement Insight and Judgement: Impaired - Group Participation Particating in Group Activities: No - Medication Management Medication Management Adherence: No Assessment - Assessment Merits Inpatient Hospitalization: For Stabilization, For Discharge Planning Inpatient DSM-IV Dx: 1. Schizophrenia Plan - Plan Treatment Plan: Name: ASA MUNIZ Birthdate: 1990 [id number] Continued Medication Management: Continue Outpt Medication Medications: Current Medications Acetaminophen (Tylenol Tab*) 650 mg PO Q4H PRN PRN Reason: PAIN or TEMP > 101 F Al Hydrox/Mg Hydrox/Simethicone (Maalox Plus*) 30 ml PO Q4H PRN PRN Reason: INDIGESTION Aripiprazole (Abilify Tab*) 10 mg PO BEDTIME [facility] Last Admin: 04/07/17 21:36 Dose: Not Given Device (Nicotine Mouth Piece*) 1 each INH .CARTRIDGE [facility] Nicotine (Nicotine Inhaler*) 10 mg INH Q2H PRN PRN Reason: CRAVING Nicotine Polacrilex (Nicotine Gum*) 2 mg PO Q2H PRN PRN Reason: CRAVING - Discharge Plan Discharge Plan: Outpatient Follow Up Outpatient Program: POOL
[2017-04-08] MEDS: ARIPiprazole TAB* 5 MG PO SCH (20:58)
[2017-04-09] MEDS ORDERED: Haloperidol INJ IV/IM* 5 MG/ML AMP IM PRN (11:26)
--- NOTE | 2017-04-09 11:32 | PN ---
Subjective - Subjective Service Type: 78804 Hosp care 15 min low complexity Subjective: Asa is found in his room under his covers. Still not attending to ADLs. Refusing meds. Court resulted in hospital being granted TOO order from the communications administrator and the patient is made aware of this, to which he simply states "Fuck you." Objective - Appearance Appearance: Well Developed/Nourished Dysmorphic Features: No Hygiene: Mal-odorous Grooming: Disheveled - Behavior Psychomotor Activities: Abnormal-Decreased Exhibits Abnormal Movement: No - Attitude and Relatedness Attitude and Relatedness: Irritable Eye Contact: Poor - Speech Quality: Unpressured Latencies: Long Quantity: Terse - Mood Patient's Decription of Mood: "Okay" - Affect Observed Affect: Unvariable Affect Consistent with: Euthymia - Thought Process Patient's Thought Process: Impoverished Thought Content: Yes Paranoid Ideation, No Passive Wish, No Suicidal Planning, No Homicidal Ideation - Sensorium Experiencing Hallucinations: Yes Type of Hallucinations: Visual: Yes, Auditory: Yes, Command: No - Level of Consciousness Level of Consciousness: Alert Orientation: Yes Intact, Yes Orientated to Time, Yes Orientated to Place, Yes Orientated to Person - Impulse Control Impulse Control: Poor - Insight and Judgement Insight and Judgement: Impaired - Group Participation Particating in Group Activities: No - Medication Management Medication Management Adherence: No Assessment - Assessment Merits Inpatient Hospitalization: For Immediate Safety, For Stabilization Inpatient DSM-IV Dx: 1. Schizophrenia Clinical Impression: 26 y.o. single, white male with a history of schizophrenia brought in by his mother due to increasing aggression and decreased self care in the setting of non-adherence with neuroleptic medications for several months. Plan - Plan Treatment Plan: Name: ASA MUNIZ Birthdate: 1990 [id number] Patient refusing antipsychotic treatment. TOO has been granted by the court. Will start paliperidone 6mg PO qday and administer haldol 5mg IM if he refuses. Will work towards getting him on the once monthly injectable Invega. Needs further inpatient care. Continued Medication Management: Start Medication Medications: Current Medications Acetaminophen (Tylenol Tab*) 650 mg PO Q4H PRN PRN Reason: PAIN or TEMP > 101 F Al Hydrox/Mg Hydrox/Simethicone (Maalox Plus*) 30 ml PO Q4H PRN PRN Reason: INDIGESTION Device (Nicotine Mouth Piece*) 1 each INH .CARTRIDGE [facility] Haloperidol Lactate (Haldol Inj Iv/Im*) 5 mg IM Q6H PRN PRN Reason: AGITATION Nicotine (Nicotine Inhaler*) 10 mg INH Q2H PRN PRN Reason: CRAVING Nicotine Polacrilex (Nicotine Gum*) 2 mg PO Q2H PRN PRN Reason: CRAVING Paliperidone (Invega Tab*) 6 mg PO DAILY [facility] - Discharge Plan Discharge Plan: Inpatient Hospitalization
[2017-04-09] MEDS: Paliperidone TAB* 6 MG PO SCH ×2 (12:01→13:22)
[2017-04-10] MEDS: Paliperidone TAB* 6 MG PO SCH (09:14)
--- NOTE | 2017-04-10 10:45 | PN ---
Subjective - Subjective Service Type: 15719 Hosp care 15 min low complexity Subjective: The patient has taken 6mg of oral paliperidone yesterday and this morning, in accordance with the django developer's T.O.O. order. He denies side effects thus far but remains isolative with minimal participation in unit activities. He is unkempt and responding to internal stimuli. Objective - Appearance Appearance: Thin Framed Dysmorphic Features: No Hygiene: Mal-odorous Grooming: Disheveled - Behavior Psychomotor Activities: Abnormal-Decreased Exhibits Abnormal Movement: No - Attitude and Relatedness Attitude and Relatedness: Dismissive Eye Contact: Poor - Speech Quality: Unpressured Latencies: Long Quantity: Terse - Mood Patient's Decription of Mood: "Okay" - Affect Observed Affect: Unvariable Affect Consistent with: Euthymia - Thought Process Patient's Thought Process: Impoverished Thought Content: Yes Paranoid Ideation, No Passive Wish, No Suicidal Planning, No Homicidal Ideation - Sensorium Experiencing Hallucinations: Yes Type of Hallucinations: Visual: No, Auditory: Yes, Command: No - Level of Consciousness Level of Consciousness: Alert Orientation: Yes Intact, Yes Orientated to Time, Yes Orientated to Place, Yes Orientated to Person - Impulse Control Impulse Control: Poor - Insight and Judgement Insight and Judgement: Impaired - Group Participation Particating in Group Activities: No - Medication Management Medication Management Adherence: Yes Assessment - Assessment Merits Inpatient Hospitalization: For Immediate Safety, For Stabilization Inpatient DSM-IV Dx: 1. Schizophrenia Clinical Impression: 26 y.o. single, white male with a history of schizophrenia brought in by his mother due to increasing aggression and decreased self care in the setting of non-adherence with neuroleptic medications for several months. Plan - Plan Treatment Plan: Name: CAT MUNIZ Birthdate: 1990 [id number] Patient now taking paliperidone 6mg PO qday in accordance with court ordered treatment. Will work towards getting him on the once monthly injectable Invega. Needs further inpatient care. Continued Medication Management: Start Medication Medications: Current Medications Acetaminophen (Tylenol Tab*) 650 mg PO Q4H PRN PRN Reason: PAIN or TEMP > 101 F Al Hydrox/Mg Hydrox/Simethicone (Maalox Plus*) 30 ml PO Q4H PRN PRN Reason: INDIGESTION Device (Nicotine Mouth Piece*) 1 each INH .CARTRIDGE [facility] Haloperidol Lactate (Haldol Inj Iv/Im*) 5 mg IM Q6H PRN PRN Reason: AGITATION Nicotine (Nicotine Inhaler*) 10 mg INH Q2H PRN PRN Reason: CRAVING Nicotine Polacrilex (Nicotine Gum*) 2 mg PO Q2H PRN PRN Reason: CRAVING Paliperidone (Invega Tab*) 6 mg PO DAILY [facility] Last Admin: 04/10/17 09:14 Dose: 6 mg - Discharge Plan Discharge Plan: Inpatient Hospitalization
[2017-04-11] MEDS: Paliperidone TAB* 6 MG PO SCH (09:36)
--- NOTE | 2017-04-11 14:42 | PN ---
Subjective - Subjective Service Type: [id number] Hosp care 15 min low complexity Subjective: The patient is laying under his covers in bed. Not participating in milieu, not attending to ADLs. Answers questions in irritable, one-word responses. Denies untoward effects with paliperidone therapy. Remains somewhat hostile. Objective - Appearance Appearance: Well Developed/Nourished, Thin Framed Dysmorphic Features: No Hygiene: Mal-odorous Grooming: Disheveled - Behavior Psychomotor Activities: Abnormal-Decreased Exhibits Abnormal Movement: No - Attitude and Relatedness Attitude and Relatedness: Hostile Eye Contact: Poor - Speech Quality: Unpressured Latencies: Long Quantity: Terse - Mood Patient's Decription of Mood: "Fine" - Affect Observed Affect: Tense Affect Consistent with: Euthymia - Thought Process Patient's Thought Process: Impoverished Thought Content: Yes Paranoid Ideation, No Passive Wish, No Suicidal Planning, No Homicidal Ideation - Sensorium Experiencing Hallucinations: Yes Type of Hallucinations: Visual: No, Auditory: Yes, Command: No - Level of Consciousness Level of Consciousness: Alert Orientation: Yes Intact, Yes Orientated to Time, Yes Orientated to Place, Yes Orientated to Person - Impulse Control Impulse Control: Poor - Insight and Judgement Insight and Judgement: Impaired - Group Participation Particating in Group Activities: No - Medication Management Medication Management Adherence: Yes Assessment - Assessment Merits Inpatient Hospitalization: For Immediate Safety, For Stabilization Inpatient DSM-IV Dx: 1. Schizophrenia Clinical Impression: 26 y.o. single, white male with a history of schizophrenia brought in by his mother due to increasing aggression and decreased self care in the setting of non-adherence with neuroleptic medications for several months. Plan - Plan Treatment Plan: Name: CAT MUNIZ Birthdate: 1990 [id number] Patient now taking paliperidone 6mg PO qday in accordance with court ordered treatment. Will increase the dose to 9mg daily and work towards getting him on the once monthly injectable Invega. Needs further inpatient care. Continued Medication Management: Start Medication Medications: Current Medications Acetaminophen (Tylenol Tab*) 650 mg PO Q4H PRN PRN Reason: PAIN or TEMP > 101 F Al Hydrox/Mg Hydrox/Simethicone (Maalox Plus*) 30 ml PO Q4H PRN PRN Reason: INDIGESTION Device (Nicotine Mouth Piece*) 1 each INH .CARTRIDGE [facility] Haloperidol Lactate (Haldol Inj Iv/Im*) 5 mg IM Q6H PRN PRN Reason: AGITATION Nicotine (Nicotine Inhaler*) 10 mg INH Q2H PRN PRN Reason: CRAVING Nicotine Polacrilex (Nicotine Gum*) 2 mg PO Q2H PRN PRN Reason: CRAVING Paliperidone (Invega Tab*) 9 mg PO DAILY [facility] - Discharge Plan Discharge Plan: Inpatient Hospitalization
[2017-04-12] MEDS: Paliperidone TAB* 9 MG PO SCH (08:56)
--- NOTE | 2017-04-12 10:48 | PN ---
Subjective - Subjective Service Type: [id number] Hosp care 15 min low complexity Subjective: Patient appears slightly less irritable but remains under his covers and refusing to participate on the unit. He is not taking care of his ADLs. Has no complaints with paliperidone therapy. Denies SI or HI. Objective - Appearance Appearance: Thin Framed Dysmorphic Features: No Hygiene: Mal-odorous Grooming: Disheveled - Behavior Psychomotor Activities: Abnormal-Decreased Exhibits Abnormal Movement: No - Attitude and Relatedness Attitude and Relatedness: Psychotically Related Eye Contact: Poor - Speech Quality: Unpressured Latencies: Long Quantity: Terse - Mood Patient's Decription of Mood: "Fine" - Affect Observed Affect: Unvariable Affect Consistent with: Euthymia - Thought Process Patient's Thought Process: Impoverished Thought Content: Yes Paranoid Ideation, No Passive Wish, No Suicidal Planning, No Homicidal Ideation - Sensorium Experiencing Hallucinations: Yes Type of Hallucinations: Visual: No, Auditory: Yes, Command: No - Level of Consciousness Level of Consciousness: Alert Orientation: Yes Intact, Yes Orientated to Time, Yes Orientated to Place, Yes Orientated to Person - Impulse Control Impulse Control: Poor - Insight and Judgement Insight and Judgement: Impaired - Group Participation Particating in Group Activities: No - Medication Management Medication Management Adherence: Yes Assessment - Assessment Merits Inpatient Hospitalization: For Immediate Safety, For Stabilization Inpatient DSM-IV Dx: 1. Schizophrenia Clinical Impression: 26 y.o. single, white male with a history of schizophrenia brought in by his mother due to increasing aggression and decreased self care in the setting of non-adherence with neuroleptic medications for several months. Plan - Plan Treatment Plan: Name: CAT MUNIZ Birthdate: 1990 [id number] Patient now taking paliperidone 9mg PO qday in accordance with court ordered treatment. Will work towards getting him on the once monthly injectable Invega. Needs further inpatient care. Continued Medication Management: Start Medication Medications: Current Medications Acetaminophen (Tylenol Tab*) 650 mg PO Q4H PRN PRN Reason: PAIN or TEMP > 101 F Al Hydrox/Mg Hydrox/Simethicone (Maalox Plus*) 30 ml PO Q4H PRN PRN Reason: INDIGESTION Device (Nicotine Mouth Piece*) 1 each INH .CARTRIDGE [facility] Haloperidol Lactate (Haldol Inj Iv/Im*) 5 mg IM Q6H PRN PRN Reason: AGITATION Nicotine (Nicotine Inhaler*) 10 mg INH Q2H PRN PRN Reason: CRAVING Nicotine Polacrilex (Nicotine Gum*) 2 mg PO Q2H PRN PRN Reason: CRAVING Paliperidone (Invega Tab*) 9 mg PO DAILY [facility] Last Admin: 04/12/17 08:56 Dose: 9 mg - Discharge Plan Discharge Plan: Inpatient Hospitalization
[2017-04-13] MEDS: Paliperidone TAB* 9 MG PO SCH (10:14)
--- NOTE | 2017-04-13 12:11 | PN ---
Subjective - Subjective Service Type: 63198 Hosp care 15 min low complexity Subjective: The patient remains highly abulic and negativistic, as evidenced by his lack of socialization or self care. He reports mild blurred vision from paliperidone therapy but is otherwise tolerating this well. He signed releases for outpatient treatment providers near his home of [place], [place] but is noncommittal on following outpatient care. Still appears psychotic. Objective - Appearance Appearance: Thin Framed Dysmorphic Features: No Hygiene: Mal-odorous Grooming: Disheveled - Behavior Psychomotor Activities: Abnormal-Decreased Exhibits Abnormal Movement: No - Attitude and Relatedness Attitude and Relatedness: Psychotically Related Eye Contact: Poor - Speech Quality: Unpressured Latencies: Long Quantity: Terse - Mood Patient's Decription of Mood: "Fine" - Affect Observed Affect: Unvariable Affect Consistent with: Euthymia - Thought Process Patient's Thought Process: Impoverished Thought Content: Yes Paranoid Ideation, No Passive Wish, No Suicidal Planning, No Homicidal Ideation - Sensorium Experiencing Hallucinations: Yes Type of Hallucinations: Visual: No, Auditory: Yes, Command: No - Level of Consciousness Level of Consciousness: Alert Orientation: Yes Intact, Yes Orientated to Time, Yes Orientated to Place, Yes Orientated to Person - Impulse Control Impulse Control: Poor - Insight and Judgement Insight and Judgement: Impaired - Group Participation Particating in Group Activities: No - Medication Management Medication Management Adherence: Yes Assessment - Assessment Merits Inpatient Hospitalization: For Immediate Safety, For Stabilization Inpatient DSM-IV Dx: 1. Schizophrenia Clinical Impression: 26 y.o. single, white male with a history of schizophrenia brought in by his mother due to increasing aggression and decreased self care in the setting of non-adherence with neuroleptic medications for several months. Plan - Plan Treatment Plan: Name: CAT MUNIZ Birthdate: 1990 [id number] Patient now taking paliperidone 9mg PO qday in accordance with court ordered treatment. Will work towards getting him on the once monthly injectable Invega. Needs further inpatient care. Continued Medication Management: Start Medication Medications: Current Medications Acetaminophen (Tylenol Tab*) 650 mg PO Q4H PRN PRN Reason: PAIN or TEMP > 101 F Al Hydrox/Mg Hydrox/Simethicone (Maalox Plus*) 30 ml PO Q4H PRN PRN Reason: INDIGESTION Device (Nicotine Mouth Piece*) 1 each INH .CARTRIDGE [facility] Haloperidol Lactate (Haldol Inj Iv/Im*) 5 mg IM Q6H PRN PRN Reason: AGITATION Nicotine (Nicotine Inhaler*) 10 mg INH Q2H PRN PRN Reason: CRAVING Nicotine Polacrilex (Nicotine Gum*) 2 mg PO Q2H PRN PRN Reason: CRAVING Paliperidone (Invega Tab*) 9 mg PO DAILY [facility] Last Admin: 04/13/17 10:14 Dose: 9 mg - Discharge Plan Discharge Plan: Inpatient Hospitalization
[2017-04-14] MEDS: Paliperidone TAB* 9 MG PO SCH (09:09)
[2017-04-14] MEDS: Acetaminophen TAB* 325 MG PO PRN (09:09)
[2017-04-15] MEDS: Paliperidone TAB* 9 MG PO SCH (09:24)
[2017-04-15] MEDS: Acetaminophen TAB* 325 MG PO PRN (17:27)
[2017-04-16] MEDS: Paliperidone TAB* 9 MG PO SCH (08:34)
--- NOTE | 2017-04-16 12:23 | PN ---
Subjective - Subjective Service Type: 22824 Hosp care 15 min low complexity Subjective: The patient remains isolative in his room, not participating in milieu activities or caring for his own ADLs. He denies violent ideation but shows no motivation to do anything but eat meals under encouragement from staff. Objective - Appearance Appearance: Thin Framed Dysmorphic Features: No Hygiene: Mal-odorous Grooming: Disheveled - Behavior Psychomotor Activities: Abnormal-Decreased Exhibits Abnormal Movement: No - Attitude and Relatedness Attitude and Relatedness: Withdrawn Eye Contact: Poor - Speech Quality: Unpressured Latencies: Long Quantity: Terse - Mood Patient's Decription of Mood: "Okay" - Affect Observed Affect: Unvariable Affect Consistent with: Euthymia - Thought Process Patient's Thought Process: Impoverished Thought Content: Yes Paranoid Ideation, No Passive Wish, No Suicidal Planning, No Homicidal Ideation - Sensorium Experiencing Hallucinations: Yes Type of Hallucinations: Visual: No, Auditory: Yes, Command: No - Level of Consciousness Level of Consciousness: Alert Orientation: Yes Intact, Yes Orientated to Time, Yes Orientated to Place, Yes Orientated to Person - Impulse Control Impulse Control: Poor - Insight and Judgement Insight and Judgement: Impaired - Group Participation Particating in Group Activities: No - Medication Management Medication Management Adherence: Yes Assessment - Assessment Merits Inpatient Hospitalization: For Immediate Safety, For Stabilization Inpatient DSM-IV Dx: 1. Schizophrenia Clinical Impression: 26 y.o. single, white male with a history of schizophrenia brought in by his mother due to increasing aggression and decreased self care in the setting of non-adherence with neuroleptic medications for several months. Plan - Plan Treatment Plan: Name: CAT MUNIZ Birthdate: 1990 [id number] Patient now taking paliperidone 9mg PO qday in accordance with court ordered treatment. Patient not improving. Will refer to [facility]. Continued Medication Management: Start Medication Medications: Current Medications Acetaminophen (Tylenol Tab*) 650 mg PO Q4H PRN PRN Reason: PAIN or TEMP > 101 F Last Admin: 04/15/17 17:27 Dose: 650 mg Al Hydrox/Mg Hydrox/Simethicone (Maalox Plus*) 30 ml PO Q4H PRN PRN Reason: INDIGESTION Device (Nicotine Mouth Piece*) 1 each INH .CARTRIDGE [facility] Haloperidol Lactate (Haldol Inj Iv/Im*) 5 mg IM Q6H PRN PRN Reason: AGITATION Nicotine (Nicotine Inhaler*) 10 mg INH Q2H PRN PRN Reason: CRAVING Nicotine Polacrilex (Nicotine Gum*) 2 mg PO Q2H PRN PRN Reason: CRAVING Paliperidone (Invega Tab*) 9 mg PO DAILY [facility] Last Admin: 04/16/17 08:34 Dose: 9 mg - Discharge Plan Discharge Plan: Consider Longer Term Tx Lab Results - Lab Results Lab Results: 04/16/17 04/16/17 08:10 08:10 Hemoglobin A1c 5.0 Triglycerides 112 Cholesterol 233 LDL Cholesterol 167 HDL Cholesterol 44.0
[2017-04-16] MEDS: Acetaminophen TAB* 325 MG PO PRN ×2 (16:58→21:06)
[2017-04-17] MEDS: Paliperidone TAB* 9 MG PO SCH (13:25)
[2017-04-17] MEDS: Acetaminophen TAB* 325 MG PO PRN (13:26)
[2017-04-18] MEDS: Paliperidone TAB* 9 MG PO SCH (09:04)
--- NOTE | 2017-04-18 13:07 | PN ---
Subjective - Subjective Service Type: 15313 Hosp care 15 min low complexity Subjective: Patient remains abulic and seclusive. He refused to participate in the administrative hearing scheduled to discuss his pending transfer to the [facility] system. He is adherent with oral paliperidone, in keeping with [facility] court order. He denies SI or HI. Objective - Appearance Appearance: Thin Framed Dysmorphic Features: No Hygiene: Mal-odorous Grooming: Disheveled - Behavior Psychomotor Activities: Abnormal-Decreased Exhibits Abnormal Movement: No - Attitude and Relatedness Attitude and Relatedness: Withdrawn Eye Contact: Poor - Speech Quality: Unpressured Latencies: Long Quantity: Terse - Mood Patient's Decription of Mood: "Fine" - Affect Observed Affect: Unvariable Affect Consistent with: Euthymia - Thought Process Patient's Thought Process: Impoverished Thought Content: Yes Paranoid Ideation, No Passive Wish, No Suicidal Planning, No Homicidal Ideation - Sensorium Experiencing Hallucinations: No, Sensorium is Clear Type of Hallucinations: Visual: No, Auditory: Yes, Command: No - Level of Consciousness Level of Consciousness: Alert Orientation: Yes Intact, Yes Orientated to Time, Yes Orientated to Place, Yes Orientated to Person - Impulse Control Impulse Control: Poor - Insight and Judgement Insight and Judgement: Impaired - Group Participation Particating in Group Activities: No - Medication Management Medication Management Adherence: Yes Assessment - Assessment Merits Inpatient Hospitalization: For Immediate Safety, For Stabilization Inpatient DSM-IV Dx: 1. Schizophrenia Clinical Impression: 26 y.o. single, white male with a history of schizophrenia brought in by his mother due to increasing aggression and decreased self care in the setting of non-adherence with neuroleptic medications for several months. Plan - Plan Treatment Plan: Name: CAT MUNIZ Birthdate: 1990 [id number] Patient now taking paliperidone 9mg PO qday in accordance with court ordered treatment. Patient not improving. Will refer to [facility]. Continued Medication Management: Start Medication Medications: Current Medications Acetaminophen (Tylenol Tab*) 650 mg PO Q4H PRN PRN Reason: PAIN or TEMP > 101 F Last Admin: 04/17/17 13:26 Dose: 650 mg Al Hydrox/Mg Hydrox/Simethicone (Maalox Plus*) 30 ml PO Q4H PRN PRN Reason: INDIGESTION Device (Nicotine Mouth Piece*) 1 each INH .CARTRIDGE [facility] Haloperidol Lactate (Haldol Inj Iv/Im*) 5 mg IM Q6H PRN PRN Reason: AGITATION Nicotine (Nicotine Inhaler*) 10 mg INH Q2H PRN PRN Reason: CRAVING Nicotine Polacrilex (Nicotine Gum*) 2 mg PO Q2H PRN PRN Reason: CRAVING Paliperidone (Invega Tab*) 9 mg PO DAILY [facility] Last Admin: 04/18/17 09:04 Dose: 9 mg - Discharge Plan Discharge Plan: Consider Longer Term Tx Lab Results - Lab Results Lab Results: 04/16/17 04/16/17 08:10 08:10 Hemoglobin A1c 5.0 Triglycerides 112 Cholesterol 233 LDL Cholesterol 167 HDL Cholesterol 44.0
[2017-04-19] MEDS: Paliperidone TAB* 9 MG PO SCH (09:19)
[2017-04-20] MEDS: Paliperidone TAB* 9 MG PO SCH (09:27)
--- NOTE | 2017-04-20 16:52 | PN ---
Subjective - Subjective Service Type: [id number] Hosp care 15 min low complexity Subjective: Asa continues to be isolative and abulic. He is not participating in milieu activities other than coming out to eat alone and then returning to his bed. He is awaiting transfer to the [facility] setting. He denies SI or HI. Objective - Appearance Appearance: Thin Framed Dysmorphic Features: No Hygiene: Mal-odorous Grooming: Disheveled - Behavior Psychomotor Activities: Abnormal-Decreased Exhibits Abnormal Movement: No - Attitude and Relatedness Attitude and Relatedness: Withdrawn Eye Contact: Poor - Speech Quality: Unpressured Latencies: Long Quantity: Terse - Mood Patient's Decription of Mood: "Fine" - Affect Observed Affect: Unvariable Affect Consistent with: Euthymia - Thought Process Patient's Thought Process: Impoverished Thought Content: Yes Paranoid Ideation, No Passive Wish, No Suicidal Planning, No Homicidal Ideation - Sensorium Experiencing Hallucinations: Yes Type of Hallucinations: Visual: No, Auditory: Yes, Command: No - Level of Consciousness Level of Consciousness: Alert Orientation: Yes Intact, Yes Orientated to Time, Yes Orientated to Place, Yes Orientated to Person - Impulse Control Impulse Control: Poor - Insight and Judgement Insight and Judgement: Impaired - Group Participation Particating in Group Activities: No - Medication Management Medication Management Adherence: Yes Assessment - Assessment Merits Inpatient Hospitalization: For Immediate Safety, For Stabilization Inpatient DSM-IV Dx: 1. Schizophrenia Clinical Impression: 26 y.o. single, white male with a history of schizophrenia brought in by his mother due to increasing aggression and decreased self care in the setting of non-adherence with neuroleptic medications for several months. Plan - Plan Treatment Plan: Name: ASA MUNIZ Birthdate: 1990 [id number] Patient now taking paliperidone 9mg PO qday in accordance with court ordered treatment but is not improving. Will increase dose to 12mg PO qday. Await transfer to the [facility]. Continued Medication Management: Start Medication Medications: Current Medications Acetaminophen (Tylenol Tab*) 650 mg PO Q4H PRN PRN Reason: PAIN or TEMP > 101 F Last Admin: 04/17/17 13:26 Dose: 650 mg Al Hydrox/Mg Hydrox/Simethicone (Maalox Plus*) 30 ml PO Q4H PRN PRN Reason: INDIGESTION Device (Nicotine Mouth Piece*) 1 each INH .CARTRIDGE [facility] Haloperidol Lactate (Haldol Inj Iv/Im*) 5 mg IM Q6H PRN PRN Reason: AGITATION Nicotine (Nicotine Inhaler*) 10 mg INH Q2H PRN PRN Reason: CRAVING Nicotine Polacrilex (Nicotine Gum*) 2 mg PO Q2H PRN PRN Reason: CRAVING - Discharge Plan Discharge Plan: Consider Longer Term Tx
[2017-04-21] MEDS: Paliperidone TAB* 3 MG TAB PO SCH (09:57)
[2017-04-22] MEDS: Paliperidone TAB* 3 MG TAB PO SCH (10:29)
[2017-04-22] MEDS: Acetaminophen TAB* 325 MG PO PRN (19:53)
[2017-04-23] MEDS: Paliperidone TAB* 3 MG TAB PO SCH (09:39)
--- NOTE | 2017-04-23 14:53 | PN ---
Subjective - Subjective Service Type: 00612 Hosp care 15 min low complexity Subjective: Patient more visible in the milieu over the weekend. He is noted to have showered twice over the weekend. Patient continues to be up for meals. He is compliant with court ordered meds and denies med s/e. Patient is linear in TP, but continues to answer questions in 1-2 word responses. Patient's affect is blunted and displays poor eye contact as he stares off straight ahead even when the interviewer is seated to his left in the milieu. Patient denies SI/HI and AH/VH. He reports no LEUNG, CP or Abd pain. Patient reports no issues with constipation or issues urinating. Objective - Appearance Appearance: Well Developed/Nourished Dysmorphic Features: No Hygiene: Normal Grooming: Fairly Well Kept - Behavior Psychomotor Activities: Normal Exhibits Abnormal Movement: No - Attitude and Relatedness Attitude and Relatedness: Minimally Cooperative Eye Contact: Poor - Speech Quality: Unpressured Latencies: Short Quantity: Terse - Mood Patient's Decription of Mood: "Okay" - Affect Observed Affect: Constricted Affect Consistent with: Dysphoria - Thought Process Patient's Thought Process: Impoverished Thought Content: No Passive Wish, No Suicidal Planning, No Homicidal Ideation, No Paranoid Ideation - Sensorium Experiencing Hallucinations: No, Sensorium is Clear Type of Hallucinations: Visual: No, Auditory: No, Command: No - Level of Consciousness Level of Consciousness: Obtunded Orientation: Yes Intact, Yes Orientated to Time, Yes Orientated to Place, Yes Orientated to Person - Impulse Control Impulse Control: Intact - Insight and Judgement Insight and Judgement: Impaired - Group Participation Particating in Group Activities: No - Medication Management Medication Management Adherence: Yes Assessment - Assessment Merits Inpatient Hospitalization: For Immediate Safety, For Stabilization Inpatient DSM-IV Dx: 1. Schizophrenia Clinical Impression: 26yo male patient with PPHx significant for Schizophrenia presented to the [facility] ED, brought in by his mother, due to increasing aggressive behavior and mother s concern that the patient has stopped taking his MH medication, Fluphenazine 20 mg po daily. The patient has been uncooperative with all interviews and gives no information. Per mom(Lyndsay#[phone]), who patient lives with, patient has not been attending to ADLs. Mom reports patient has been non- compliant with mental health meds for at least one month. Mom reports patient has not bathed in approx. 4 weeks. She reports patient is more isolative and socially withdrawn over the same time. She reports patient has a hx of VHs and AHs. She reports he recently he has not reported hallucinations to her, but she has noticed him behaving as if responding to some internal stimuli. She reports he has been expressing paranoid delusions and bizarre ideas. Plan - Plan Treatment Plan: Name: CAT MUNIZ Birthdate: 1990 [id number] PLAN: ------ 1. Continue admission to [facility] for safety and symptom mx. 2. Continue court ordered med, Invega 12mg IM daily. 3. Patient continues to refuse initiation of an VALADEZ 4. Collateral information obtained from family, PCP, and MH providers. 5. Patient to participate in milieu activities and groups. Medications: Current Medications Acetaminophen (Tylenol Tab*) 650 mg PO Q4H PRN PRN Reason: PAIN or TEMP > 101 F Last Admin: 04/22/17 19:53 Dose: 650 mg Al Hydrox/Mg Hydrox/Simethicone (Maalox Plus*) 30 ml PO Q4H PRN PRN Reason: INDIGESTION Device (Nicotine Mouth Piece*) 1 each INH .CARTRIDGE KALA Haloperidol Lactate (Haldol Inj Iv/Im*) 5 mg IM Q6H PRN PRN Reason: AGITATION Nicotine (Nicotine Inhaler*) 10 mg INH Q2H PRN PRN Reason: CRAVING Nicotine Polacrilex (Nicotine Gum*) 2 mg PO Q2H PRN PRN Reason: CRAVING Paliperidone (Invega Tab*) 12 mg PO DAILY [facility] Last Admin: 04/23/17 09:39 Dose: 12 mg - Discharge Plan Discharge Plan: Outpatient Follow Up Outpatient Program: [facility]
[2017-04-24] MEDS: Paliperidone TAB* 3 MG TAB PO SCH (08:31)
--- NOTE | 2017-04-25 06:22 | PN ---
Subjective - Subjective Service Type: 47556 Hosp care 15 min low complexity - NOTE for 04/24/17 Encounter Subjective: Patient continues to be socially withdrawn and isolated to his bedroom for the majority of the day. Patient continues to be noted to be up for meals. Patient noted to still have odd affect on interview and gazes forward for the entirity of the interview and does not look the way of this provider. Patient noted to have attended to hygiene today. Patient reports no AH/VH. He denies SI/HI. He reports his mood as "fine". Sleep and appetite have been noted to be wnl. Patient is med compliant and denies med s/e's. Objective - Appearance Appearance: Thin Framed Dysmorphic Features: No Hygiene: Normal Grooming: Fairly Well Kept - Behavior Psychomotor Activities: Abnormal-Decreased Exhibits Abnormal Movement: Yes - Attitude and Relatedness Attitude and Relatedness: Superficially Cooperative Eye Contact: Poor - Speech Quality: Unpressured Latencies: Short Quantity: Terse - Mood Patient's Decription of Mood: "Fine" - Affect Observed Affect: Constricted Affect Consistent with: Dysphoria - Thought Process Patient's Thought Process: Coherent Thought Content: No Passive Wish, No Suicidal Planning, No Homicidal Ideation, No Paranoid Ideation - Sensorium Experiencing Hallucinations: No, Sensorium is Clear Type of Hallucinations: Visual: No, Auditory: No, Command: No - Level of Consciousness Level of Consciousness: Obtunded Orientation: Yes Intact, Yes Orientated to Place, Yes Orientated to Person, No Orientated to Time - Impulse Control Impulse Control: Impaired - Insight and Judgement Insight and Judgement: Impaired - Group Participation Particating in Group Activities: No - Medication Management Medication Management Adherence: Yes Assessment - Assessment Inpatient DSM-IV Dx: 1. Schizophrenia Clinical Impression: 26yo male patient with PPHx significant for Schizophrenia presented to the [facility] ED, brought in by his mother, due to increasing aggressive behavior and mother s concern that the patient has stopped taking his MH medication, Fluphenazine 20 mg po daily. The patient has been uncooperative with all interviews and gives no information. Per mom(Lyndsay#[phone]), who patient lives with, patient has not been attending to ADLs. Mom reports patient has been non- compliant with mental health meds for at least one month. Mom reports patient has not bathed in approx. 4 weeks. She reports patient is more isolative and socially withdrawn over the same time. She reports patient has a hx of VHs and AHs. She reports he recently he has not reported hallucinations to her, but she has noticed him behaving as if responding to some internal stimuli. She reports he has been expressing paranoid delusions and bizarre ideas. Plan - Plan Treatment Plan: Name: CAT MUNIZ Birthdate: 1990 [id number] PLAN: ------ 1. Continue admission to [facility] for safety and symptom mx. 2. Continue court ordered med, Invega 12mg IM daily. 3. Patient continues to refuse initiation of an VLAADEZ. 4. Collateral information obtained from family, PCP, and MH providers. 5. Patient to participate in milieu activities and groups. Medications: Current Medications Acetaminophen (Tylenol Tab*) 650 mg PO Q4H PRN PRN Reason: PAIN or TEMP > 101 F Last Admin: 04/22/17 19:53 Dose: 650 mg Al Hydrox/Mg Hydrox/Simethicone (Maalox Plus*) 30 ml PO Q4H PRN PRN Reason: INDIGESTION Device (Nicotine Mouth Piece*) 1 each INH .CARTRIDGE KALA Haloperidol Lactate (Haldol Inj Iv/Im*) 5 mg IM Q6H PRN PRN Reason: AGITATION Nicotine (Nicotine Inhaler*) 10 mg INH Q2H PRN PRN Reason: CRAVING Nicotine Polacrilex (Nicotine Gum*) 2 mg PO Q2H PRN PRN Reason: CRAVING Paliperidone (Invega Tab*) 12 mg PO DAILY [facility] Last Admin: 04/24/17 08:31 Dose: 12 mg - Discharge Plan Discharge Plan: Outpatient Follow Up Outpatient Program: [facility]
--- NOTE | 2017-04-25 06:23 | PN ---
Subjective - Subjective Service Type: [id number] Hosp care 15 min low complexity Subjective: Patient lying in his bed on my approach. Even though he is in bed, patient noted to be full in affect, not blunted, and his manner more kinetic, less slow/stiff. Patient engages the interview and reports his mood as "fine". He was asked about his refusal x2 for ECG and was explained this was required for transfer to [facility]. Patient was noted to respond to his with spontaneous speech, linear and GD in nature. He reported feeling better on his medications. He reported feeling he did not need correction psych hospitalization. He brought up talking with his mother regarding this transfer and he was informed and patient expressed being amenable to a family meeting regarding re-assessment of his symptoms and need for transfer. Patient denies SI/HI and AH/VH. He was not odd in affect or manner today on interview. He reports sleep and appetite are wnl. He reports he did shower today. He again denied issues with urination or constipation/diarrhea. Objective - Appearance Appearance: Thin Framed Dysmorphic Features: No Hygiene: Normal Grooming: Fairly Well Kept - Behavior Psychomotor Activities: Normal Exhibits Abnormal Movement: No - Attitude and Relatedness Attitude and Relatedness: Cooperative Eye Contact: Fair - Speech Quality: Unpressured Latencies: Normal Quantity: Appropriate - Mood Patient's Decription of Mood: "Fine" - Affect Observed Affect: Fair Affect Consistent with: Euthymia - Thought Process Patient's Thought Process: Coherent Thought Content: No Passive Wish, No Suicidal Planning, No Homicidal Ideation, No Paranoid Ideation - Sensorium Experiencing Hallucinations: No, Sensorium is Clear Type of Hallucinations: Visual: No, Auditory: No, Command: No - Level of Consciousness Level of Consciousness: Alert Orientation: Yes Intact, Yes Orientated to Time, Yes Orientated to Place, Yes Orientated to Person - Impulse Control Impulse Control: Intact - Insight and Judgement Insight and Judgement: Fair - Group Participation Particating in Group Activities: No - Medication Management Medication Management Adherence: Yes Assessment - Assessment Merits Inpatient Hospitalization: For Immediate Safety, For Stabilization Inpatient DSM-IV Dx: 1. Schizophrenia Clinical Impression: 26yo male patient with PPHx significant for Schizophrenia presented to the [facility], brought in by his mother, due to increasing aggressive behavior and mother s concern that the patient has stopped taking his MH medication, Fluphenazine 20 mg po daily. The patient has been uncooperative with all interviews and gives no information. Per mom(Lyndsay#[phone]), who patient lives with, patient has not been attending to ADLs. Mom reports patient has been non- compliant with mental health meds for at least one month. Mom reports patient has not bathed in approx. 4 weeks. She reports patient is more isolative and socially withdrawn over the same time. She reports patient has a hx of VHs and AHs. She reports he recently he has not reported hallucinations to her, but she has noticed him behaving as if responding to some internal stimuli. She reports he has been expressing paranoid delusions and bizarre ideas. Plan - Plan Treatment Plan: Name: CAT MUNIZ Birthdate: 1990 [id number] PLAN: ------ 1. Continue admission to [facility] for safety and symptom mx. 2. Continue court ordered med, Invega 12mg po daily. 3. Family meeting with mom, who patient lives with, to be scheduled to re- assess patient's symptoms, initiation of VALADEZ, and need to further pursue [facility] psych transfer. 4. Collateral information obtained from family, PCP, and MH providers. 5. Patient to participate in milieu activities and groups. Medications: Current Medications Acetaminophen (Tylenol Tab*) 650 mg PO Q4H PRN PRN Reason: PAIN or TEMP > 101 F Last Admin: 04/22/17 19:53 Dose: 650 mg Al Hydrox/Mg Hydrox/Simethicone (Maalox Plus*) 30 ml PO Q4H PRN PRN Reason: INDIGESTION Device (Nicotine Mouth Piece*) 1 each INH .CARTRIDGE [facility] Haloperidol Lactate (Haldol Inj Iv/Im*) 5 mg IM Q6H PRN PRN Reason: AGITATION Nicotine (Nicotine Inhaler*) 10 mg INH Q2H PRN PRN Reason: CRAVING Nicotine Polacrilex (Nicotine Gum*) 2 mg PO Q2H PRN PRN Reason: CRAVING Paliperidone (Invega Tab*) 12 mg PO DAILY [facility] Last Admin: 04/24/17 08:31 Dose: 12 mg - Discharge Plan Discharge Plan: Outpatient Follow Up
[2017-04-25] MEDS: Paliperidone TAB* 3 MG TAB PO SCH (08:20)
[2017-04-26] MEDS: Paliperidone TAB* 3 MG TAB PO SCH (09:54)
--- NOTE | 2017-04-26 14:55 | PN ---
Subjective - Subjective Service Type: 63594 Hosp care 15 min low complexity Subjective: Patient continues to isolate in his bedroom, but is up for meals and continues to shower daily. Patient reports his mood again today as "fine". His affect again today is broad, improved from his flat/blunted affect since admission. Patient denies SI/HI and AH/VH. He is aware of family meeting scheduled for noon tomorrow on his clinical progress and referral for mcc care at [facility]. Objective - Appearance Appearance: Thin Framed Dysmorphic Features: No Hygiene: Normal Grooming: Fairly Well Kept - Behavior Psychomotor Activities: Normal Exhibits Abnormal Movement: No - Attitude and Relatedness Attitude and Relatedness: Cooperative Eye Contact: Fair - Speech Quality: Unpressured Latencies: Short Quantity: Terse - Mood Patient's Decription of Mood: "Fine" - Affect Observed Affect: Depressed Affect Consistent with: Dysphoria - Thought Process Patient's Thought Process: Coherent Thought Content: No Passive Wish, No Suicidal Planning, No Homicidal Ideation, No Paranoid Ideation - Sensorium Experiencing Hallucinations: No, Sensorium is Clear Type of Hallucinations: Visual: No, Auditory: No, Command: No - Level of Consciousness Level of Consciousness: Alert Orientation: Yes Intact, Yes Orientated to Time, Yes Orientated to Place, Yes Orientated to Person - Impulse Control Impulse Control: Intact - Insight and Judgement Insight and Judgement: Impaired - Group Participation Particating in Group Activities: No - Medication Management Medication Management Adherence: Yes Assessment - Assessment Merits Inpatient Hospitalization: For Immediate Safety, For Stabilization Inpatient DSM-IV Dx: 1. Schizophrenia Clinical Impression: 26yo male patient with PPHx significant for Schizophrenia presented to the [facility] ED, brought in by his mother, due to increasing aggressive behavior and mother s concern that the patient has stopped taking his MH medication, Fluphenazine 20 mg po daily. The patient has been uncooperative with all interviews and gives no information. Per mom(Lyndsay#[phone]), who patient lives with, patient has not been attending to ADLs. Mom reports patient has been non- compliant with mental health meds for at least one month. Mom reports patient has not bathed in approx. 4 weeks. She reports patient is more isolative and socially withdrawn over the same time. She reports patient has a hx of VHs and AHs. She reports he recently he has not reported hallucinations to her, but she has noticed him behaving as if responding to some internal stimuli. She reports he has been expressing paranoid delusions and bizarre ideas. Plan - Plan Treatment Plan: Name: CAT MUNIZ Birthdate: 1990 [id number] PLAN: ------ 1. Continue admission to [facility] for safety and symptom mx. 2. Continue court ordered med, Invega 12mg po daily. 3. Family meeting scheduled for sunday04/27/17 to re-assess patient's symptoms, initiation of VALADEZ, and referral for transfer [facility] for mcc care. 4. Collateral information obtained from family, PCP, and MH providers. 5. Patient to participate in milieu activities and groups. Medications: Current Medications Acetaminophen (Tylenol Tab*) 650 mg PO Q4H PRN PRN Reason: PAIN or TEMP > 101 F Last Admin: 04/22/17 19:53 Dose: 650 mg Al Hydrox/Mg Hydrox/Simethicone (Maalox Plus*) 30 ml PO Q4H PRN PRN Reason: INDIGESTION Device (Nicotine Mouth Piece*) 1 each INH .CARTRIDGE KALA Haloperidol Lactate (Haldol Inj Iv/Im*) 5 mg IM Q6H PRN PRN Reason: AGITATION Nicotine (Nicotine Inhaler*) 10 mg INH Q2H PRN PRN Reason: CRAVING Nicotine Polacrilex (Nicotine Gum*) 2 mg PO Q2H PRN PRN Reason: CRAVING Paliperidone (Invega Tab*) 12 mg PO DAILY [facility] Last Admin: 04/26/17 09:54 Dose: 12 mg - Discharge Plan Discharge Plan: Consider Longer Term Tx
[2017-04-27] MEDS: Paliperidone TAB* 3 MG TAB PO SCH (10:00)
--- NOTE | 2017-04-28 07:20 | PN ---
Subjective - Subjective Service Type: 37071 Hosp care 25 min moderate complexity Subjective: Family meeting including patient, this provider, bio dad, mom and step dad completed today. Patient's clinical response to current antipsychotic and transfer to [facility] for long-term care on the agenda. Mother reports she is happy patient has been attending to his hygiene, showering and is more expressive in facial features since Invega was up-titrated to current dose of 12mg daily. Mother feels patient still has not made the gains she noted while patient compliant on Prolixin before this admission. Mom would like this provider to discuss trial of another antipsychotic with provider who will take over patient's care once transferred to [place]. Patient did not participate in the meeting, noted to be attending to multiple other things in the comfort room environment instead. Patient does report showering today and denies med s/e on current dose of Invega. He also denies AH/VH and SI/HI, but quickly re-focuses away from questions stating, "I'm fine". Bio dad feels patient is just depressed. Step dad is hopeful patient sees gains from [place] and that can be given an VALADEZ by his [place] provider. Objective - Appearance Appearance: Thin Framed Dysmorphic Features: No Hygiene: Normal Grooming: Fairly Well Kept - Behavior Psychomotor Activities: Normal Exhibits Abnormal Movement: No - Attitude and Relatedness Attitude and Relatedness: Superficially Cooperative Eye Contact: Poor - Speech Quality: Unpressured Latencies: Normal Quantity: Terse - Mood Patient's Decription of Mood: "Fine" - Affect Observed Affect: Tense Affect Consistent with: Dysphoria - Thought Process Patient's Thought Process: Impoverished Thought Content: No Passive Wish, No Suicidal Planning, No Homicidal Ideation, No Paranoid Ideation - Sensorium Experiencing Hallucinations: No, Sensorium is Clear Type of Hallucinations: Visual: No, Auditory: No, Command: No - Level of Consciousness Level of Consciousness: Alert Orientation: Yes Intact, Yes Orientated to Place, Yes Orientated to Person, No Orientated to Time - Impulse Control Impulse Control: Impaired - Insight and Judgement Insight and Judgement: Impaired - Group Participation Particating in Group Activities: No - Medication Management Medication Management Adherence: Yes Assessment - Assessment Merits Inpatient Hospitalization: For Immediate Safety, For Stabilization Inpatient DSM-IV Dx: 1. Schizophrenia Clinical Impression: Patient is a 26yo male with PPHx significant for Schizophrenia who presented to [place] [facility], brought in by his mother, due to increasing aggressive behavior and mothers concern that the patient has stopped taking his MH medication, Fluphenazine 20 mg po daily. The patient continues to be minimally cooperative with interviews. Per mom(Lyndsay#[phone]), who patient lives with, patient had not been attending to ADLs. Mom reports patient had been non-compliant with mental health meds for at least one month. Mom reports patient has not bathed in approx. 4 weeks prior to admission. She reports patient is more isolative and socially withdrawn over the same time. She reports patient has a hx of VHs and AHs. She reports he recently he has not reported hallucinations to her, but she has noticed him behaving as if responding to some internal stimuli. She reports he had been expressing paranoid delusions and bizarre ideas. Patient was med non-compliant on the unit from admission until TOO ordered on 04/09/17. Patient has been compliant with up-titration of Invega from 6mg to now 12mg po daily. Patient has been accepted for transfer to [facility] for long-term care. Family meeting held Sunday04/28/17 with patient, this provider, dad, mom and step-dad. Family would like trial of new antipsychotic started once transferred to [place] as they note no significant improvements on max dose Invega. Above described symptoms persist. Plan - Plan Treatment Plan: Name: CAT MUNIZ Birthdate: 1990 [id number] PLAN: ------ 1. Continue admission to [facility] for safety and symptom mx. 2. Continue court ordered med, Invega 12mg po daily. 3. Transfer to [place] for long-term care set for early next week. 4. Family meeting completed Sunday04/27/17. Family sees no major improvement on max dose invega and wants trial of new antipscyhotic started once transferred to [place]. Mother and Step dad hope an VALADEZ can be started there. 5. Collateral information obtained from family and providers. 6. Patient to participate in milieu activities and groups. Medications: Current Medications Acetaminophen (Tylenol Tab*) 650 mg PO Q4H PRN PRN Reason: PAIN or TEMP > 101 F Last Admin: 04/22/17 19:53 Dose: 650 mg Al Hydrox/Mg Hydrox/Simethicone (Maalox Plus*) 30 ml PO Q4H PRN PRN Reason: INDIGESTION Device (Nicotine Mouth Piece*) 1 each INH .CARTRIDGE KALA Haloperidol Lactate (Haldol Inj Iv/Im*) 5 mg IM Q6H PRN PRN Reason: AGITATION Nicotine (Nicotine Inhaler*) 10 mg INH Q2H PRN PRN Reason: CRAVING Nicotine Polacrilex (Nicotine Gum*) 2 mg PO Q2H PRN PRN Reason: CRAVING Paliperidone (Invega Tab*) 12 mg PO DAILY [facility] Last Admin: 04/27/17 10:00 Dose: 12 mg - Discharge Plan Discharge Plan: Consider Longer Term Tx Outpatient Program: Private Clinician(s)
[2017-04-28] MEDS: Paliperidone TAB* 3 MG TAB PO SCH (11:23)
[2017-04-29] MEDS: Paliperidone TAB* 3 MG TAB PO SCH (09:03)
[2017-04-30 08:01] VITALS: BP 108/56
[2017-04-30] MEDS: Paliperidone TAB* 3 MG TAB PO SCH (09:28)
[2017-04-30] MEDS: Acetaminophen TAB* 325 MG PO PRN (18:28)
--- NOTE | 2017-05-01 05:58 | DS ---
Subjective - Subjective Service Types: 82337 Hosp MT Day Mgmt simple under 30 min Treatment Course & Assessment Clinical Course & Impression: Patient is a 26yo male with PPHx significant for Schizophrenia who presented to the [facility], brought in by his mother, due to increasing aggressive behavior and mothers concern that the patient has stopped taking his MH medication, Fluphenazine 20 mg po daily. The patient continues to be minimally cooperative with interviews. Per mom(Lyndsay#[phone]), who patient lives with, patient had not been attending to ADLs. Mom reports patient had been non-compliant with mental health meds for at least one month. Mom reports patient has not bathed in approx. 4 weeks prior to admission. She reports patient is more isolative and socially withdrawn over the same time. She reports patient has a hx of VHs and AHs. She reports he recently he has not reported hallucinations to her, but she has noticed him behaving as if responding to some internal stimuli. She reports he had been expressing paranoid delusions and bizarre ideas. Patient was med non-compliant on the unit from admission until TOO ordered on 04/09/17. Patient has been compliant with up-titration of Invega from 6mg to now 12mg po daily. Patient has been accepted for transfer to [facility] for long-term care. Family meeting held Sunday04/28/17 with patient, this provider, dad, mom and step-dad. Family would like trial of new antipsychotic started once transferred to [place] as they note no significant improvements on max dose Invega. Above described symptoms persist. Inpatient DSM-IV Dx: 1. Schizophrenia Discharge Planning - Discharge Planning Medications: Current Medications Acetaminophen (Tylenol Tab*) 650 mg PO Q4H PRN PRN Reason: PAIN or TEMP > 101 F Last Admin: 04/30/17 18:28 Dose: 650 mg Al Hydrox/Mg Hydrox/Simethicone (Maalox Plus*) 30 ml PO Q4H PRN PRN Reason: INDIGESTION Device (Nicotine Mouth Piece*) 1 each INH .[facility] Haloperidol Lactate (Haldol Inj Iv/Im*) 5 mg IM Q6H PRN PRN Reason: AGITATION Nicotine (Nicotine Inhaler*) 10 mg INH Q2H PRN PRN Reason: CRAVING Nicotine Polacrilex (Nicotine Gum*) 2 mg PO Q2H PRN PRN Reason: CRAVING Paliperidone (Invega Tab*) 12 mg PO DAILY [facility] Last Admin: 04/30/17 09:28 Dose: 12 mg Discharge Planning: Prescriptions provided for discharge [] Yes [] No Follow up care details as per social work arrangements. Patient response to discharge plan: [] eager for discharge [] agreeable with discharge plan [] ambivalent about discharge [] disagrees with discharge today
--- NOTE | 2017-05-01 05:58 | PN ---
Subjective - Subjective Service Type: 73549 Hosp care 15 min low complexity - NOTE for 04/30/17 Encounter Subjective: Patient again withdrawn to his room for majority of weekend. Patient noted to be up for meals and noted walking the halls alone. Patient reports his mood as "fine". He continues to display more facial expressions, but is showing no more activation than that. He is up for showers. He does not attend groups. Patient denies SI/ HI and AH/VH. Objective - Appearance Appearance: Well Developed/Nourished, Thin Framed Dysmorphic Features: No Hygiene: Normal Grooming: Fairly Well Kept - Behavior Psychomotor Activities: Abnormal-Decreased Exhibits Abnormal Movement: Yes - Attitude and Relatedness Attitude and Relatedness: Minimally Cooperative Eye Contact: Poor - Speech Quality: Unpressured Latencies: Normal Quantity: Terse - Mood Patient's Decription of Mood: "Fine" - Affect Observed Affect: Depressed Affect Consistent with: Dysphoria - Thought Process Patient's Thought Process: Coherent Thought Content: No Passive Wish, No Suicidal Planning, No Homicidal Ideation, No Paranoid Ideation - Sensorium Experiencing Hallucinations: No, Sensorium is Clear Type of Hallucinations: Visual: No, Auditory: No, Command: No - Level of Consciousness Level of Consciousness: Alert Orientation: Yes Intact, Yes Orientated to Time, Yes Orientated to Place, Yes Orientated to Person - Impulse Control Impulse Control: Impaired - Insight and Judgement Insight and Judgement: Impaired - Group Participation Particating in Group Activities: No - Medication Management Medication Management Adherence: Yes Assessment - Assessment Merits Inpatient Hospitalization: For Immediate Safety, For Stabilization Inpatient DSM-IV Dx: 1. Schizophrenia Clinical Impression: Patient is a 26yo male with PPHx significant for Schizophrenia who [place] [facility], brought in by his mother, due to increasing aggressive behavior and mothers concern that the patient has stopped taking his MH medication, Fluphenazine 20 mg po daily. The patient continues to be minimally cooperative with interviews. Per mom(Lyndsay#[phone]), who patient lives with, patient had not been attending to ADLs. Mom reports patient had been non-compliant with mental health meds for at least one month. Mom reports patient has not bathed in approx. 4 weeks prior to admission. She reports patient is more isolative and socially withdrawn over the same time. She reports patient has a hx of VHs and AHs. She reports he recently he has not reported hallucinations to her, but she has noticed him behaving as if responding to some internal stimuli. She reports he had been expressing paranoid delusions and bizarre ideas. Patient was med non-compliant on the unit from admission until TOO ordered on 04/09/17. Patient has been compliant with up-titration of Invega from 6mg to now 12mg po daily. Patient has been accepted for transfer to [facility] for long-term care. Family meeting held Sunday04/28/17 with patient, this provider, dad, mom and step-dad. Family would like trial of new antipsychotic started once transferred to [place] as they note no significant improvements on max dose Invega. Above described symptoms persist. Plan - Plan Treatment Plan: Name: CAT MUNIZ Birthdate: 1990 [id number] PLAN: ------ 1. Continue admission to [facility] for safety and symptom mx. 2. Continue court ordered med, Invega 12mg po daily. 3. Transfer to [place] for long-term care set for 05/01/17 at 0745. 4. Family meeting completed Sunday04/27/17. Family sees no major improvement on max dose invega and wants trial of new antipscyhotic started once transferred to [place]. Mother and Step dad hope an VALADEZ can be started there. 5. Collateral information obtained from family and providers. 6. Patient to participate in milieu activities and groups. Medications: Current Medications Acetaminophen (Tylenol Tab*) 650 mg PO Q4H PRN PRN Reason: PAIN or TEMP > 101 F Last Admin: 04/30/17 18:28 Dose: 650 mg Al Hydrox/Mg Hydrox/Simethicone (Maalox Plus*) 30 ml PO Q4H PRN PRN Reason: INDIGESTION Device (Nicotine Mouth Piece*) 1 each INH [facility] Haloperidol Lactate (Haldol Inj Iv/Im*) 5 mg IM Q6H PRN PRN Reason: AGITATION Nicotine (Nicotine Inhaler*) 10 mg INH Q2H PRN PRN Reason: CRAVING Nicotine Polacrilex (Nicotine Gum*) 2 mg PO Q2H PRN PRN Reason: CRAVING Paliperidone (Invega Tab*) 12 mg PO DAILY [facility] Last Admin: 04/30/17 09:28 Dose: 12 mg - Discharge Plan Discharge Plan: Consider Longer Term Tx
[2017-05-01] MEDS: Paliperidone TAB* 3 MG TAB PO SCH (09:09)
--- NOTE | 2017-05-01 16:01 | DS ---
DATE OF ADMISSION: 03/29/2017. DATE OF DISCHARGE: 05/01/2017. DISCHARGE DIAGNOSES: AXIS I: Schizophrenia. AXIS II: Deferred. AXIS III: None. AXIS IV: Severe, primary support stressors. AXIS V: At the time of admission was 30 and at the time of discharge is 40. CONDITION AT THE TIME OF DISCHARGE: Guarded. The patient remains psychotic, withdrawn, unable to c omplete activities of daily living without significant encouragement by staff. The patient is exhib iting multiple negative symptoms of schizophrenia and would not be deemed to be safe for discharge. For these reason, we are transferring him to the [facility] for further inpat ient psychiatric stabilization in a long-term state facility setting. MENTAL STATUS EXAM: At the time of admission, the patient is a disheveled, young, white male, lying in bed under his covers. He is minimally responsive, makes little to no eye contact. He answers q uestions sparingly with no spontaneous speech. Mood appears to be slight irritable with a blunted a ffect. Thought process shows paucity of thought. Thought content is impoverished. The patient den ies suicidal or homicidal ideations. He denies auditory or visual hallucinations, although is somet imes observed responding to internal stimuli. Insight and judgment are poor given the fact that he i s chronically noncompliant with antipsychotic medication. Cognitively, he is awake and alert with w hat would appear to be an average intellect. DISCHARGE INSTRUCTIONS TO THE PATIENT: A. Medications: The patient is on Paliperidone 12 mg p.o. at bedtime. B. Diet: Regular. C. Activities: As per [facility] protocol. The patient is a nonsmoker. There are no diagnostic studies pending at the time of discharge. D. Follow-up care: The patient is a direct transfer to the [facility] where the accepting physician is Dr. John Huang. They will be responsible for all outpatient follow- ups at his time of discharge from that facility. HOSPITAL COURSE - PART A: Reason for admission: The patient is a 26-year-old, single, white male wi th a history of schizophrenia with multiple hospitalizations, both at [facility] as well as [facility], who was brought in by his mother due to increasing agitated and aggressi ve behavior compounded with concerns that the patient has stopped taking his mental health medicatio n which was Fluphenazine 20 mg at bedtime. The patient has been mostly uncooperative with the inter view and gave no information at the time of his initial evaluation. He was noted to be up for meals , but only with great encouragement and it was clear that he was not taking care of activities of da larry living as he was disheveled and malodorous. The mother indicated that he has not been bathing f or several weeks and had been expressing bizarre, paranoid delusions and responding to internal stim berny. He denied any use of alcohol or illicit substances and he did deny any suicidal or homicidal t houghts; however, his mother indicated that he had been aggressive with her in the home setting. He did make some paranoid statements to the effect that people were out to get him. HOSPITAL COURSE - PART B: Psychiatric treatment rendered: The patient was admitted to the [facility] Unit where he was placed on q.15 minute checks for his own safety. He was extremely isolative, mostly staying in his room, initially not even coming out for meals unless he was signifi cantly encouraged to do so by staff. When his mother would visit, he would not interact with her. He refused medications which prompted us to take him to court. The patient refused to attend the co urt proceedings and the hospital won its case for treatment over objection. At that time, we starte d a trial of Invega at the dose of 6 mg nightly, which he did accept, understanding that if he decli harlan he would be given IM Haldol. Gradually the dose was increased from 6 to 12 mg and we did see so me improvement in his affect; however, he continued to be withdrawn, skipping groups and not partici pating in milieu activities. His mother was reluctant to take him home under these circumstances an d it was felt that he would benefit from longer term treatment. At this time, he is being transferr ed to [facility] where he will continue to get intensive inpatient services an d more rehabilitative support for the future. [id number]/[facility] #: [id number]
== END 2017-05-01 09:00 | DRG 750 ==
LOC: ED 14:56 → BSU 03-29 01:35
PROVIDERS: ADMIT Psychiatry & Neurology Psychiatry; ATTEND Psychiatry & Neurology Psychiatry
DX: F20.9 Schizophrenia, unspecified (principal); F22 Delusional disorders; H53.8 Other visual disturbances; T43.595A Adverse effect of other antipsychotics and neuroleptics, initial encounter; Z91.14 Patient's other noncompliance with medication regimen
CPT/HCPCS: 36415; 80053; 80061; 80320; 80329; 83036; 84443; 85025; 99222; 99231; 99232; A9270-GY; G0480; J1630